=== PATIENT | female | born 1940 | race Two or more races ===

== ENCOUNTER 2019-01-13 17:16 | Inpatient (IN) | payer MEDICARE, MEDICAID ==
[2019-01-13] MEDS ORDERED: Sodium Chloride 0.9% 1,000 ML IV ONE (17:23)
--- NOTE | 2019-01-13 17:29 | ED Physician Chart ---
ED Chief Complaint/HPI - Patient Information Date Seen:: 01/13/19 Time Seen:: 17:15 Chief Complaint:: Hematochezia History of Present Illness:: onset x 2 days of hematochezia and melena; no report of trauma, H/As, S/T, neck pain, C/P, SOB, cough, Abd. Pain, A/N/V/D/C, fever, chills, or urinary s/s Historian:: Patient, EMS Review:: Nurse's Note Reviewed, Old Chart Reviewed, EMS run form Reviewed ED Review of Systems - Review of Systems General/Constitutional: No fever, No chills, No weight loss, No weakness, No diaphoresis, No edema, No loss of appetite Skin: No skin lesions, No rash, No bruising Head: No headache, No light-headedness Eyes: No loss of vision, No pain, No diplopia ENT: No earache, No nasal drainage, No sore throat, No tinnitus Neck: No neck pain, No swelling, No thyromegaly, No stiffness, No mass noted Cardio Vascular: No chest pain, No palpitations, No PND, No orthopnea, No edema Pulmonary: No SOB, No cough, No sputum, No wheezing GI: Nausea, Vomiting, Diarrhea, No pain, Melena, Hematochezia, No constipation, No hematemesis G/U: No dysuria, No frequency, No hematuria, No nacturia [employer] Installer: No vaginal discharge, No abnormal vaginal bleed, No contraction Musculoskeletal: No bone or joint pain, No back pain, No muscle pain Endocrine: No polyuria, No polydipsia Psychiatric: No prior psych history, No depression, No anxiety, No suicidal ideation, No homicidal ideation, No auditory hallucination, No visual hallucination Hematopoietic: No bruising, No lymphadenopathy Allergic/Immuno: No urticaria, No angioedema Neurological: No syncope, No focal symptoms, No weakness, No paresthesia, No headache, No seizure, No dizziness, No confusion, No vertigo ED Past Medical History - Past Medical History Obtainable: Yes Past Medical History: HTN, Dyslipidemia, PUD/GERD Family History: HTN Social History: Non Smoker, No Alcohol, No Drug Use, , Care Facility Surgical History: None Psychiatricy History: None Medication: Reviewed Family Medical History - Family Member Mother History Unknown: Yes ED Physical Exam - Physical Examination General/Constitutional: Awake, Well-developed, well-nourished, Alert, No distress, GCS 15, Non-toxic appearing, Ambulatory Head: Atraumatic Eyes: Lids, conjuctiva normal, PERRL, EOMI Skin: Nl inspection, No rash, No skin lesions, No ecchymosis, Well hydrated, No lymphadenopathy ENMT: External ears, nose nl, TM canals nl, Nasal exam nl, Lips, teeth, gums nl , Oropharynx nl, Tonsils nl Neck: Nontender, Full ROM w/o pain, No JVD, No nuchal rigidity, No bruit, No mass, No stridor Respiratory: Nl effort/Exclusion, Clear to Auscultation, No Wheeze/Rhonchi/Rales Cardio Vascular: RRR, No murmur, gallop, rubs, NL S1 S2, Carotid/Femoral/Distal pulses equal bilaterally GI: No tenderness/rebounding/guarding, No organomegaly, No hernia, Normal BS's, Nondistended, No mass/bruits, No McBurney tenderness : No CVA tenderness Extremities: No tenderness or effusion, Full ROM, normal strength in all extremities, No edema, Normal digits & nails Neuro/Psych: Alert/oriented, DTR's symmetric, Normal sensory exam, Normal motor strength, Judgement/insight normal, Mood normal, Normal gait, No focal deficits Misc: Normal back, No paraspinal tenderness ED Septic Shock - . Is Septic Shock (SBP<90, OR Lactate>4 mmol\L) present?: No ED Reassessment (Disposition) - Reassessment Reassessment Condition:: Improved - Diagnosis Diagnosis:: Hematochezia; Melena; GI Bleed; Hematuria; UTI; Hypoalbuminemia; Hypocalcemia; Anemia; Hyponatremia; Dehydration; Pancreatitis; Hyperglycemia - Aftercare/Follow up Instructions Aftercare/Follow-Up Instructions:: Counseled pt regarding lab results/diagnosis & need follow up, Counseled pt & family regarding lab results/diagnosis & need follow up - Patient Disposition Discharge/Transfer:: Acute Care w/in this hosp Accepting Physician:: Dr. Valentin Time Called:: 1829 Time Responded:: 18:30 Admitted to:: Telemetry Spoke to:: Dr. Valentin Admitting Medical Physician:: Dr. Valentin Condition at Disposition:: Stable, Improved
[2019-01-13 17:50] LABS: URINE SOURCE CLEAN C
[2019-01-13 17:55] LABS: URINE BILIRUBIN NEGATIVE (NEGATIVE); URINE BLOOD LARGE (NEGATIVE); URINE GLUCOSE (UA) NEGATIVE (NEGATIVE); URINE KETONE NEGATIVE (NEGATIVE); URINE LEUKOCYTE ESTERASE MODERATE (NEGATIVE); URINE MICROSCOPIC INDICATED? YES; URINE NITRATE NEGATIVE (NEGATIVE); URINE PROTEIN 30 mg/dL (NEGATIVE); URINE UROBILINOGEN 0.2 E.U./dL (0.2 - 1.0)
[2019-01-13 17:57] LABS: URINE CLARITY HAZY (CLEAR); URINE COLOR YELLOW
[2019-01-13 17:57] LABS: HEMOGLOBIN 8.6 gm/dL (12-16); LYMPHOCYTE ABSOLUTE 0.7 Th/cmm (1.5-3.0); NEUTROPHILE ABSOLUTE 5.6 Th/cmm (1.8-8.0)
[2019-01-13 17:59] LABS: % BASOPHILS 0.3 % (0.0-2.0); % EOSINOPHILS 0.5 % (0.0-5.0); % LYMPHOCYTES 9.9 % (20.0-50.0); % MONOCYTES 5.2 % (2.0-10.0); % NEUTROPHILS 84.1 % (40.0-80.0); HEMATOCRIT 25.8 % (41.0-60); MEAN CORPUSCULAR HEMOGLOBIN 30.1 pg (27.0-31.0); MEAN CORPUSCULAR HGB CONC 33.4 pg (28.0-36.0); MONOCYTE ABSOLUTE 0.3 Th/cmm (0.3-1.0); PLATELET COUNT 267 Th/cmm (150-400); RED BLOOD COUNT 2.86 Mil/cmm (3.80-5.20); RED CELL DISTRIBUTION WIDTH 17.3 % (11.5-20.0); WHITE BLOOD COUNT 6.6 Th/cmm (4.8-10.8)
[2019-01-13 18:05] LABS: URINE BACTERIA 3+ /hpf (NONE SEEN); URINE EPITHELIAL CELLS FEW /lpf (FEW)
[2019-01-13 18:06] LABS: ALB/GLOB RATIO 1.2 (1.0-1.8); ALBUMIN 2.9 gm/dL (3.7-5.3); ALKALINE PHOSPHATASE 115 U/L (34-104); AMYLASE SERUM 61 U/L (29-103); ANION GAP 11.6 (7.0-16.0); BILIRUBIN,TOTAL 0.4 mg/dL (0.3-1.0); BUN - UREA NITROGEN 35 mg/dL (7-25); CALCIUM SERUM 8.3 mg/dL (8.6-10.3); CARBON DIOXIDE 24.2 mEq/L (21.0-31.0); CHLORIDE 102 mEq/L (98-107); CREATININE - SERUM 0.9 mg/dL (0.6-1.2); GLUCOSE 144 mg/dL (70-105); LIPASE 116 U/L (11-82); POTASSIUM SERUM 3.8 mEq/L (3.5-5.1); SGOT 24 U/L (13-39); SGPT/ALT 33 U/L (7-52); SODIUM SERUM 134 mEq/L (136-145); TOTAL PROTEIN,SERUM 5.3 gm/dL (6.0-8.3)
[2019-01-13] MEDS ORDERED: cefTRIAXone 1 GM in Sodium Chloride 0.9% 50 ML IV ONE (18:31)
[2019-01-13 19:04] LABS: INR 0.98 (0.5-1.4)
[2019-01-13 20:10] VITALS: BP 99/55
[2019-01-13] MEDS: cefTRIAXone 1 GM in Sodium Chloride 0.9% 50 ML IV SCH (20:58)
[2019-01-14 05:41] LABS: HEMOGLOBIN 11.5 gm/dL (12-16); MONOCYTE ABSOLUTE 0.5 Th/cmm (0.3-1.0); NEUTROPHILE ABSOLUTE 5.3 Th/cmm (1.8-8.0); WHITE BLOOD COUNT 6.8 Th/cmm (4.8-10.8)
[2019-01-14 05:45] LABS: % BASOPHILS 0.6 % (0.0-2.0); % EOSINOPHILS 0.3 % (0.0-5.0); % LYMPHOCYTES 14.4 % (20.0-50.0); % MONOCYTES 7.9 % (2.0-10.0); % NEUTROPHILS 76.8 % (40.0-80.0); MEAN CELL VOLUME 88.2 fl (81-100); MEAN CORPUSCULAR HEMOGLOBIN 30.5 pg (27.0-31.0); MEAN CORPUSCULAR HGB CONC 34.6 pg (28.0-36.0); PLATELET COUNT 243 Th/cmm (150-400); RED BLOOD COUNT 3.76 Mil/cmm (3.80-5.20); RED CELL DISTRIBUTION WIDTH 15.7 % (11.5-20.0)
[2019-01-14 05:48] LABS: HEMATOCRIT 33.1 % (41.0-60)
--- NOTE | 2019-01-14 06:07 | Consultation ---
DATE OF CONSULTATION: 01/13/2019 INFECTIOUS DISEASE CONSULTATION REFERRING PHYSICIAN: Tim Valentin M.D. REASON FOR CONSULTATION: UTI. HISTORY OF PRESENT ILLNESS: The patient is a 78-year-old female with past medical history of dementia, hypertension, and dyslipidemia, brought to the ER for the hematochezia and melena for ____. Denies any trauma or any headache, dizziness, fever, or chills. On initial evaluation, the patient's urinalysis showed pyuria and bacteriuria. The patient was started on Rocephin. ID consult was called for further antibiotic management. PAST MEDICAL HISTORY: Dementia, hypertension, dyslipidemia, peptic ulcer disease, and GERD. PAST SURGICAL HISTORY: None. PSYCHIATRIC HISTORY: None. MEDICATIONS: As per medication reconciliation sheet. Antibiotic gleason, on Rocephin. ALLERGIES: NKDA. SOCIAL HISTORY: The patient lives at care facility. She is . The patient has no smoking, no alcohol, and no drug use. FAMILY HISTORY: Hypertension. REVIEW OF SYSTEMS: GENERAL: The patient has no fever, no chills, and no diaphoresis. HEENT: No diplopia, no photophobia, and no sore throat. RESPIRATORY: No cough. No shortness of breath. CARDIOVASCULAR: No chest pain or palpitation. GASTROINTESTINAL: The patient has no nausea, no vomiting, no diarrhea, but the patient has melena versus hematochezia. GENITOURINARY: No dysuria. No hematuria. NEUROLOGIC: No headache, no dizziness, and no focal weakness. PHYSICAL EXAMINATION: GENERAL: The patient is comfortable, obese, not in acute distress. VITAL SIGNS: Current vital signs shows temperature is 97 degrees Fahrenheit, pulse is 56, respirations 18, blood pressure is 99/55, and oxygen saturation is 97%. HEENT: Head is normocephalic, atraumatic. Oral cavity is moist, pink tongue. EYES: No pallor. No icterus. PERRLA, EOMI. NECK: Supple. No JVD. No carotid bruit. Trachea in midline. CHEST: Bilateral breath sounds. No crackles. No wheezing. HEART: S1, S2 within normal limits. Regular rhythm. No murmur. No gallop. ABDOMEN: Soft, nontender, nondistended. Bowel sounds present. EXTREMITIES: No cyanosis, no clubbing, and no edema. NEUROLOGIC: She is alert, awake, and oriented x 3. LABORATORY DATA: Current labs shows WBC count is 6600, hemoglobin is 8.6, hematocrit is 25.8, platelets are 267,000, and neutrophils 84%. INR is 0.98. Sodium is 134, potassium is 3.8, chloride is 102, bicarbonate is 24, BUN is 35, creatinine is 0.9, and glucose is 144. Urinalysis showed hazy urine with large blood, moderate leukoesterase, wbc's 10-25, and bacteria 3+. IMPRESSION: 1. Urinary tract infection. 2. ____ hematochezia. Rule out gastrointestinal bleed. 3. Hypertension. 4. Gastroesophageal reflux disease. 5. Peptic ulcer disease. 6. Dyslipidemia. RECOMMENDATIONS: We will continue Rocephin and depending on the culture report, we will define final antibiotic therapy. [facility]# [id number]
[2019-01-14 06:21] LABS: ANION GAP 11.7 (7.0-16.0); BUN - UREA NITROGEN 31 mg/dL (7-25); CALCIUM SERUM 8.4 mg/dL (8.6-10.3); CARBON DIOXIDE 24.8 mEq/L (21.0-31.0); CHLORIDE 105 mEq/L (98-107); CREATININE - SERUM 0.8 mg/dL (0.6-1.2); GLUCOSE 89 mg/dL (70-105); POTASSIUM SERUM 3.5 mEq/L (3.5-5.1); SODIUM SERUM 138 mEq/L (136-145)
[2019-01-14] MEDS: INSULIN LISPRO 100 UNIT/ML VIAL SUBQ SCH ×4 (06:43→21:41)
[2019-01-14] MEDS ORDERED: Diatrizoate Meglumine/Diatri 30 mL Sol PO ONE (08:42)
--- NOTE | 2019-01-14 09:53 | Consultation ---
DATE OF CONSULTATION: 01/14/2019 INPATIENT GASTROINTESTINAL CONSULTATION CONSULTING PHYSICIAN: Dr. Valentin. REASON FOR CONSULTATION: Hematochezia and possible melena and anemia. HISTORY OF PRESENT ILLNESS: The patient is a 78-year-old female with past medical history significant for dementia, GERD, hypertension, hyperlipidemia, who was brought into the hospital from a nursing facility for hematochezia and possible melena. The history is mostly obtained from the chart and the nursing staff as the patient is not a great historian. It was noted that her nursing facility, she was having bright red blood per rectum, although there is also report of black colored stool in the documentation. It is unclear if the patient has had any endoscopy prior. She herself denies it, but she has continued to have 2 episodes of hematochezia overnight while here at [facility]. Her hemoglobin on admission was 8.5 and she has since been given a blood transfusion. She denies any abdominal pain or hematemesis. PAST MEDICAL HISTORY: Dementia, hypertension, dyslipidemia, GERD. PAST SURGICAL HISTORY: She denies abdominal surgeries. FAMILY HISTORY: Noncontributory. SOCIAL HISTORY: The patient lives in a nursing facility. She does not smoke or use illicit drugs or drink alcohol. ALLERGIES: No known drug allergies. REVIEW OF SYSTEMS: A 12-point review of systems was performed with the patient's negative and the pertinent positives mentioned in the history of present illness. CURRENT MEDICATIONS: Include Tylenol, bisacodyl, ceftriaxone, insulin. PHYSICAL EXAMINATION: VITAL SIGNS: The blood pressure is 148/65, pulse 65 beats per minute, respiratory rate of 18, temperature 97.7, oxygenation 100%. GENERAL: The patient is lying on her back. She is alert and oriented x 2-3. She is not in any apparent distress. HEENT: Normocephalic, atraumatic appearing head. Pupils are equal and reactive. Extraocular muscles appear to be intact. Moist mucous membranes. NECK: Supple. There is JVD. There is no thyromegaly. CHEST: There are some crackles heard bilaterally at the bases. CARDIOVASCULAR: S1, S2 present. Regular rate and rhythm. ABDOMEN: Obese, soft, nontender to palpation. There is no guarding or rebound or fluid distention. EXTREMITIES: There is 1+ pitting edema bilaterally and venous stasis changes. Pulses are not present. SKIN: There is no jaundice. LABORATORY DATA: Sodium 138, BUN 31, creatinine 0.8, total bilirubin 0.4, AST 24, ALT 33, lipase 116. Hemoglobin 8.6 on admission, now it is 11.5; white blood cell count 6.6; platelet count 267. No abdominal imaging has been performed. IMPRESSION: This is a 78-year-old female with history of dementia, gastroesophageal reflux disease, hypertension, hyperlipidemia who is admitted to the hospital with hematochezia and possible melena. 1. Gastrointestinal bleed as manifested by hematochezia and also possible melena. 2. Hypertension. 3. Gastroesophageal reflux disease. 4. Profound immobility and confined to the bed. 5. Anemia. DISCUSSION: This patient appears to be having GI bleed. She is having hematochezia and there is also a report of some black stool at her nursing facility; thus, etiologies include both upper and lower gastrointestinal bleeding at this point, the patient denies ever having endoscopy before and thus EGD and colonoscopy is indicated now for further investigation and possible therapy. We will also get a CT scan with only oral contrast to ensure we are not looking at something like ischemic colitis or infectious colitis. RECOMMENDATIONS: 1. We will plan for EGD and colonoscopy tomorrow morning in the GI lab. 2. We will give bowel preparation tonight with 4 liters GoLYTELY. 3. Continue to trend hemoglobin, transfuse to keep hemoglobin above 7. 4. We will get an oral contrast CT scan as mentioned above. 5. Clear liquids are okay for today, n.p.o. at midnight. Thank you for allowing me to participate in her care. Please call me with any questions. JOB# [id number]
--- NOTE | 2019-01-14 10:36 | Consultation ---
Consult Note - Consult Note Service Date: 01/14/19 Referring Physician: Lani Valentin Consult Note: PHYSICIAN Consultation Note: Date of Admission: 01/13/19 Purpose of Consultation: Chief Complaint: History of Present Illness: Patient IDANIA QUINTERO was admitted to [facility] Telemetry with GI BLEED. Past Medical History: Allergies Allergy/AdvReac Type Severity Reaction Status Date / Time No Known Allergies Allergy Verified 01/13/19 17:30 Vital Signs Temp 97.7 F 01/14/19 07:54 Pulse 65 01/14/19 07:54 Resp 18 01/14/19 07:54 BP 148/65 01/14/19 07:54 Pulse Ox 100 01/14/19 07:54 Intake & Output 01/13/19 01/14/19 01/14/19 18:59 06:59 18:59 Intake Total 550 Output Total 600 Balance -50 Weight (lbs) 216 lb 203 lb Intake: Intake, IV Amount 50 cefTRIAXone 1 gm In 50 Sodium Chloride 0.9% 50 ml @ 100 mls/hr IV Q24HR ELENITA Rx#:[id number] Blood Product 500 Output: Urine 600 Other: # Bowel Movements 0 Weight Source Estimated Bedscale Laboratory Results - last 24 hr 01/13/19 01/13/19 01/13/19 17:40 17:40 17:40 WBC 6.6 RBC 2.86 L Hgb 8.6 L Hct 25.8 L MCV 90.0 MCH 30.1 MCHC Differential 33.4 RDW 17.3 Plt Count 267 MPV 7.4 Neutrophils % 84.1 H Lymphocytes % 9.9 L Monocytes % 5.2 Eosinophils % 0.5 Basophils % 0.3 PT INR Sodium 134 L Potassium 3.8 Chloride 102 Carbon Dioxide 24.2 Anion Gap 11.6 BUN 35 H Creatinine 0.9 Est GFR ( Amer) TNP Est GFR (Non-Af Amer) TNP BUN/Creatinine Ratio 38.9 Glucose 144 H POC Glucose Calcium 8.3 L Total Bilirubin 0.4 AST 24 ALT 33 Alkaline Phosphatase 115 H Troponin I 0.02 Total Protein 5.3 L Albumin 2.9 L Globulin 2.4 Albumin/Globulin Ratio 1.2 Amylase 61 Lipase 116 H Urine Source Urine Color Urine Clarity Urine pH Ur Specific [place] Urine Protein Urine Glucose (UA) Urine Ketones Urine Blood Urine Nitrate Urine Bilirubin Urine Urobilinogen Ur Leukocyte Esterase Urine RBC Urine WBC Ur Epithelial Cells Urine Bacteria Blood Type Antibody Screen Crossmatch 01/13/19 01/13/19 01/13/19 17:40 17:40 17:49 WBC RBC Hgb Hct MCV MCH MCHC Differential RDW Plt Count MPV Neutrophils % Lymphocytes % Monocytes % Eosinophils % Basophils % PT 10.2 INR 0.98 Sodium Potassium Chloride Carbon Dioxide Anion Gap BUN Creatinine Est GFR ( Amer) Est GFR (Non-Af Amer) BUN/Creatinine Ratio Glucose POC Glucose Calcium Total Bilirubin AST ALT Alkaline Phosphatase Troponin I Total Protein Albumin Globulin Albumin/Globulin Ratio Amylase Lipase Urine Source CLEAN C Urine Color YELLOW Urine Clarity HAZY Urine pH 6.0 Ur Specific [place] 1.025 Urine Protein 30 H Urine Glucose (UA) NEGATIVE Urine Ketones NEGATIVE Urine Blood LARGE H Urine Nitrate NEGATIVE Urine Bilirubin NEGATIVE Urine Urobilinogen 0.2 Ur Leukocyte Esterase MODERATE H Urine RBC 5-10 H Urine WBC 10-25 H Ur Epithelial Cells FEW Urine Bacteria 3+ H Blood Type O POSITIVE Antibody Screen NEGATIVE Crossmatch 01/13/19 01/14/19 01/14/19 17:50 05:30 05:30 WBC 6.8 RBC 3.76 L Hgb 11.5 L Hct 33.1 L D MCV 88.2 MCH 30.5 MCHC Differential 34.6 RDW 15.7 Plt Count 243 MPV 7.0 Neutrophils % 76.8 Lymphocytes % 14.4 L Monocytes % 7.9 Eosinophils % 0.3 Basophils % 0.6 PT INR Sodium 138 Potassium 3.5 Chloride 105 Carbon Dioxide 24.8 Anion Gap 11.7 BUN 31 H Creatinine 0.8 Est GFR ( Amer) TNP Est GFR (Non-Af Amer) TNP BUN/Creatinine Ratio 38.8 Glucose 89 POC Glucose Calcium 8.4 L Total Bilirubin AST ALT Alkaline Phosphatase Troponin I Total Protein Albumin Globulin Albumin/Globulin Ratio Amylase Lipase Urine Source Urine Color Urine Clarity Urine pH Ur Specific [place] Urine Protein Urine Glucose (UA) Urine Ketones Urine Blood Urine Nitrate Urine Bilirubin Urine Urobilinogen Ur Leukocyte Esterase Urine RBC Urine WBC Ur Epithelial Cells Urine Bacteria Blood Type O POSITIVE Antibody Screen NEGATIVE Crossmatch See Detail 01/14/19 05:41 WBC RBC Hgb Hct MCV MCH MCHC Differential RDW Plt Count MPV Neutrophils % Lymphocytes % Monocytes % Eosinophils % Basophils % PT INR Sodium Potassium Chloride Carbon Dioxide Anion Gap BUN Creatinine Est GFR ( Amer) Est GFR (Non-Af Amer) BUN/Creatinine Ratio Glucose POC Glucose 82 Calcium Total Bilirubin AST ALT Alkaline Phosphatase Troponin I Total Protein Albumin Globulin Albumin/Globulin Ratio Amylase Lipase Urine Source Urine Color Urine Clarity Urine pH Ur Specific [place] Urine Protein Urine Glucose (UA) Urine Ketones Urine Blood Urine Nitrate Urine Bilirubin Urine Urobilinogen Ur Leukocyte Esterase Urine RBC Urine WBC Ur Epithelial Cells Urine Bacteria Blood Type Antibody Screen Crossmatch Home Medication Medication Instructions Recorded Type Acetaminophen [Pain Reliever] 500 mg PO Q6H PRN 01/13/19 History Amlodipine Besylate 1 tab PO HS 01/13/19 History Ammonium Lactate Cream [Lac-Hydrin 1 appl TP BID 01/13/19 History Cream] Bisacodyl [Dulcolax 10 Mg Supp] 10 mg RC DAILY PRN 01/13/19 History Calcium Carbonate [Calcium Carb] 600 mg PO BID 01/13/19 History Chlorhexidine [Chlorhexidine 15 ml PO BID 01/13/19 History Flavor] Dexamethasone [Dexamethasone*] 2 mg PO Q12H 01/13/19 History Dextrose 50% [D50w] 25 gm IVP Q24H PRN 01/13/19 History Docusate Sodium [Colace] 100 mg PO BID 01/13/19 History Fleet Enema 135 ml RC DAILY PRN 01/13/19 History Gabapentin 200 mg PO DAILY 01/13/19 History Glucagon,Human Recombinant 1 mg IM Q15MIN PRN 01/13/19 History [Glucagon Emergency Kit] Heparin Sodium,Porcine [Heparin 5,000 unit IJ Q8H 01/13/19 History Sodium] Insulin Human Regular [humuLIN R] 0 units SUBQ ACHS 01/13/19 History Losartan Potassium [Cozaar] 100 mg PO DAILY 01/13/19 History Magnesium Hydroxide [Milk of 30 ml PO DAILY PRN 01/13/19 History Magnesia] Multivitamin with Minerals [Daily 1 each PO DAILY 01/13/19 History Vitamin Formula-Minerals] Pantoprazole Sodium 40 mg PO DAILY 01/13/19 History Polyethylene Glycol 3350 [Miralax] 17 gm PO DAILY PRN 01/13/19 History Ppd [Tubersol] 5 tu ID X1 01/13/19 History Pravastatin Sodium 10 mg PO HS 01/13/19 History Sennosides A and B [Senna] 8.6 mg PO BID 01/13/19 History Simethicone [Mylicon] 80 mg PO Q12H PRN 01/13/19 History Tramadol HCl [Ultram] 50 mg PO Q8H PRN 01/13/19 History Current Medications Generic Name Dose Route Start Last Admin Trade Name Freq PRN Reason Stop Dose Admin Acetaminophen 325 mg 01/13/19 22:21 Tylenol PO 03/14/19 22:20 Q4H PRN MILD PAIN AND TEMP ABOVE 101 Bisacodyl 10 mg 01/14/19 16:00 Dulcolax 5 Mg Ec Tab PO 01/14/19 16:01 X1 ONE Ceftriaxone Sodium 1 gm/ 50 mls @ 100 mls/hr 01/13/19 20:09 01/13/19 21:28 Sodium Chloride IV 03/14/19 20:08 Infused Q24HR ELENITA Infusion Insulin Human Lispro 0 unit 01/14/19 07:30 01/14/19 06:43 Humalog SUBQ 03/15/19 07:29 Not Given ACHS ELENITA Protocol Polyethylene Glycol/Electrolytes 4,000 ml 01/14/19 18:00 Golytely PO 01/14/19 18:01 X1 ONE Review of Systems: A 12 point ROS was reviewed with the pertinent positive and negatives noted in the HPI. Social History Smoking Status Smoker, status unknown Family Medical History Family Medical History Start: 01/13/19 19: 14 Freq: ONCE Status: Active Protocol: Document 01/13/19 20:00 ERICA (Rec: 01/13/19 22:23 ERICA [id number]) Family Medical History Mother History Unknown Yes Ethnicity Physical Exam: General: HEENT: Neck: Cardio: Respiratory: Abdominal: painless gi bleed Genital/Urinary: Extremities: Neurological: Assessment: gi bleed Plan: tomorrow will have an EGD and COLONOSCOPY will follow with you Signed, Kenny Lau [id number]
[2019-01-14] MEDS ORDERED: Magnesium Hydroxide (MOM) 30 mL UDC PO PRN (15:51)
[2019-01-14] MEDS ORDERED: Acetaminophen 500 MG TAB PO PRN (15:51)
[2019-01-14] MEDS ORDERED: POLYETHYLENE GLYCOL 3350 17 GM PACK PO PRN (15:51)
[2019-01-14] MEDS ORDERED: Dextrose 50% 50 mL Abboject IVP PRN (15:51)
[2019-01-14] MEDS ORDERED: Fleet Enema 135 mL RC PRN (15:51)
[2019-01-14] MEDS ORDERED: GLUCAGON HCl 1 MG KIT IM PRN (15:51)
[2019-01-14] MEDS ORDERED: Non-Formulary Item 1 EA (Heparin Sodium,Porcine [Heparin Sodium] 5,000 UNIT) IJ SCH (16:00)
[2019-01-14] MEDS: CHLORHEXIDINE PO SCH (16:09)
[2019-01-14] MEDS: cefTRIAXone 1 GM in Sodium Chloride 0.9% 50 ML IV SCH (21:39)
[2019-01-15] MEDS: Heparin Sod 5,000Units/ML 5,000 UNITS/ML VIAL SUBQ SCH ×3 (05:00→20:13)
[2019-01-15] MEDS: INSULIN LISPRO 100 UNIT/ML VIAL SUBQ SCH ×4 (07:16→20:13)
--- NOTE | 2019-01-15 07:50 | History & Physical ---
ADMIT DATE: 01/15/[address] Valentin. CHIEF COMPLAINT: Hematochezia. HISTORY OF PRESENT ILLNESS: A 78-year-old female who is a longterm resident who has a 2-day history of hematochezia and melena. No reports of any fevers at the longterm. For further management, the patient is admitted to the telemetry unit. PAST MEDICAL HISTORY: Hypertension, dyslipidemia, PUD, GERD, dementia. PAST SURGICAL HISTORY: None. MEDICATIONS: See medication list. ALLERGIES: No drug allergies. FAMILY HISTORY: Noncontributory. REVIEW OF SYSTEMS: Unable to obtain, the patient does not want to answer questions at this time. PHYSICAL EXAMINATION: GENERAL: Elderly female, awake, alert, in no apparent distress. VITAL SIGNS: Temperature 97.3, heart rate 81, blood pressure 136/69, respirations 18, O2 98%. HEENT: Head is normocephalic, atraumatic. NECK: Supple. No mass. LUNGS: Clear bilaterally. CARDIOVASCULAR: Regular rate and rhythm. ABDOMEN: Soft, nontender. LABORATORY DATA: WBC 6.8, H and H 11.5 and 33.1, platelet of 243. Sodium 138, potassium 3.5, chloride 105, BUN 31, creatinine 0.8. The patient had a urinalysis done, positive for UTI. ASSESSMENT: Hematochezia, melena, possible gastrointestinal bleed, acute urinary tract infection, microcytic anemia, vasomotor nephropathy, hypocalcemia, dementia, hypertension. PLAN: The patient to be admitted to the telemetry unit. We will get GI consultation as well as ID, give the patient IV fluids for hydration. We will continue to monitor this patient. JOB# [id number]
[2019-01-15] MEDS ORDERED: Tuberculin 5 TU/0.1 mL UD ID ONE (09:00)
[2019-01-15] MEDS ORDERED: Propofol 10 mg/mL 20mL Vial **SURGERY USE ONLY IV ONE (09:15)
[2019-01-15] MEDS ORDERED: Lidocaine 2% Gel 5 mL TP ONE (09:15)
[2019-01-15] MEDS: CHLORHEXIDINE PO SCH ×2 (10:45→16:30)
[2019-01-15] MEDS: Ammonium Lactate Cream 140 gm Tube TP SCH ×2 (10:46→17:32)
[2019-01-15] MEDS: Pantoprazole 40 mg EC Tab PO SCH (10:53)
[2019-01-15] MEDS: POLYETHYLENE GLYCOL 3350 17 GM PACK PO SCH (10:53)
[2019-01-15] MEDS: Multivitamin w/ Minerals Tab PO SCH (10:53)
--- NOTE | 2019-01-15 11:00 | Operative Report ---
DATE OF SURGERY: 01/15/2019 PROCEDURE: 1. Esophagogastroduodenoscopy with biopsy. 2. Colonoscopy with biopsy. PREPROCEDURE DIAGNOSES: 1. Gastrointestinal/rectal bleeding. 2. Anemia. POSTPROCEDURE DIAGNOSES: 1. Upper endoscopy showing mild gastritis, status post biopsy and CLOtest. 2. Colonoscopy showing fecal impaction/status post-digital disimpaction; medium-sized mid rectal ulcer, likely stercoral (due to fecal impaction), status post biopsy; probable cause of rectal bleeding; diverticulosis; small internal hemorrhoids; small sigmoid polyp, excised by biopsy forceps; limited examination of the colon. INDICATIONS: The patient is a 78-year-old female with mild dementia undergoing an upper endoscopy and colonoscopy for evaluation of GI bleeding and anemia. CONSENT: Informed consent was obtained from the patient and her durable power of employee benefits attorney prior to procedure after detailed explanation of risks, benefits, and alternatives including but not limited to infection, bleeding, perforation and . SEDATION: Monitored anesthesia care per Dr. Schreiber. DESCRIPTION OF PROCEDURE AND FINDINGS: The procedure took place as an inpatient in the GI suite of [facility]. The patient was kept in a left lateral decubitus position. Adequate sedation was achieved by Dr. Schreiber. Initially, an upper endoscopy was performed followed by colonoscopy. An Olympus diagnostic upper endoscope was advanced via the patient's mouth and into the esophagus. The esophagus appeared normal with the Z-line normal appearing at 36 cm from the gums. Retroflexion in the stomach revealed no GE junction mass or varices. No hiatal hernia was identified. Mild gastritis was identified in the antrum. Biopsy obtained for CLOtest as well as pathology. The pyloric channel and duodenum up to second portion appeared normal. The scope was then withdrawn from the patient. The patient was then repositioned and colonoscopy performed. Rectal examination revealed a large amount of stool in the rectum consistent with fecal impaction. Digital disimpaction was performed and a large amount of stool was evacuated. Next, a pediatric colonoscope was advanced via the patient's anus and into the rectum with ease. It was advanced up to the cecum, which was visualized by landmarks of ileocecal valve and appendiceal orifice. The quality of the bowel preparation was limited and somewhat poor in the rectosigmoid colon where lesions less than 1 cm may have been missed. Retroflexion was not able to be performed in the rectum due to the presence of fecal impaction. There was a single 6 mm sigmoid polyp that was excised by biopsy forceps. A 2 cm clean based rectal ulcer was identified in the mid rectum. This was likely stercoral and caused by fecal impaction. Biopsies were obtained from ulcer edges and submitted for histopathology to rule out dysplasia. End-on view of the anal canal revealed small internal hemorrhoids, and larger external hemorrhoids were also identified. There was [id number] left greater than right-sided diverticulosis without evidence of diverticulitis. The scope was then withdrawn. The patient tolerated the procedure well. No complications are anticipated. RECOMMENDATIONS: 1. GERD, gastritis and high fiber diet. 2. Stool softeners to relieve fecal impaction. This will also aid in healing of the ulcer. 3. Repeat colonoscopy advised perhaps in 6-12 months' time to assess the colon better. This can be done as an outpatient. 4. Oral diet as tolerated. 5. Monitor hemoglobin; transfuse as necessary. Thank you, Dr. Tim Valentin, for involving us in the care of your patient. If you have any further questions, please call us. JOB# [id number] MTDGerman
--- NOTE | 2019-01-15 13:16 | Diagnostic Imaging Report ---
CT scan abdomen and pelvis without intravenous contrast HISTORY: Gastrointestinal bleeding Total DLP equals 824 CTDI equals 14.2 Axial sections were obtained from the xiphoid process down to the pubic symphysis. The liver exhibits a normal size with a homogeneous parenchyma. No focal lesions. The spleen appears normal and no focal amenities seen within the pancreas. Gallstones are noted. The left kidney is not seen. Surgical clips seen in the left renal fossa consistent with a prior nephrectomy. Slight cortical irregularity involves the right kidney. Punctate nonobstructing calculus noted in the lateral cortex. No hydronephrosis. Defect noted within the subcutaneous tissues over the lower mid abdomen. The exam of the pelvis demonstrates a distended stool-filled rectum. Haziness of the perirectal and presacral fat. Significance should be correlated clinically. Rahman catheter is seen within a markedly contracted urinary bladder. Severe diffuse degenerative changes seen throughout the spine. IMPRESSION: 1. Findings of a prior left nephrectomy 2. Cholelithiasis 3. Scarring involving the cortex of the right kidney. Punctate calcification without hydronephrosis noted in the lateral cortex of the right kidney. 4. Distended stool-filled rectum. Haziness of the perirectal fat. Significance should be correlated clinically. 5. Severe degenerative changes within the spine along with surgical changes.
--- NOTE | 2019-01-15 13:23 | Diagnostic Imaging Report ---
Portable chest x-ray HISTORY: Cough, preoperative The heart is enlarged. Tortuosity of the thoracic aorta. No acute focal pulmonary processes. Surgical hardware noted throughout the thoracic spine. IMPRESSION: 1. No acute pulmonary processes 2. Cardiomegaly
--- NOTE | 2019-01-15 18:15 | Infectious Disease Prog Note ---
Infectious Disease Subjective - Review of Systems Service Date: 01/15/19 Subjective: cc uti/gi bleed hpi- pseudomonas in urine r to zosyn rocephin changed to levaquin endoscopy done ros no fever o/e vss chest clear clear s1s2 abd soft ext no edema Vital Signs - 24 hr 01/14/19 01/14/19 01/14/19 18:54 20:00 21:39 Temp 98 F HR 68 73 73 RR 18 18 BP 146/80 146/80 O2 Sat % 96 100 01/15/19 01/15/19 01/15/19 00:00 04:00 08:00 Temp 96.7 F 97.3 F 96.5 F HR 78 81 63 RR 18 18 18 BP 113/65 136/69 137/64 O2 Sat % 96 98 100 01/15/19 01/15/19 01/15/19 09:48 10:46 12:00 Temp 96.9 F HR 66 63 58 RR 18 16 BP 137/64 155/67 O2 Sat % 97 96 01/15/19 16:00 Temp HR 67 RR BP 155/64 O2 Sat % Procedures EXCISION OF SIGMOID COLON, ENDO, DIAGN (01/13/19) EXCISION OF STOMACH, PYLORUS, ENDO, DIAGN (01/13/19) Microbiology 01/13/19 17:49 Urine,Clean Catch Urine Culture - Final Pseudomonas Aeruginosa 01/13/19 17:50 Nares - Final NO MRSA ISOLATED Laboratory Results - last 24 hr 01/14/19 01/15/19 01/15/19 21:38 04:56 06:52 PT 10.4 INR 1.00 POC Glucose 102 95 Diagnoses HYPOCALCEMIA (01/13/19) UNSPECIFIED DEMENTIA WITHOUT BEHAVIORAL DISTURBANCE (01/13/19) ESSENTIAL (PRIMARY) HYPERTENSION (01/13/19) MELENA (01/13/19) ACUTE KIDNEY FAILURE WITH TUBULAR NECROSIS (01/13/19) URINARY TRACT INFECTION, SITE NOT SPECIFIED (01/13/19) WEAKNESS (01/13/19) Current Medications Acetaminophen (Tylenol) 325 mg PO Q4H PRN PRN Reason: MILD PAIN AND TEMP ABOVE 101 Stop: 03/14/19 22:20 Last Admin: 01/15/19 16:30 Dose: 325 mg Acetaminophen (Tylenol Extra Strength) 500 mg PO Q6H PRN PRN Reason: Pain (Mild) Stop: 03/15/19 15:50 Amlodipine Besylate (Norvasc) 5 mg PO HS [facility] Stop: 03/15/19 20:59 Last Admin: 01/14/19 21:39 Dose: 5 mg Bisacodyl (Dulcolax 10 Mg Supp) 10 mg RC DAILY PRN PRN Reason: Constipation Stop: 03/15/19 15:50 Calcium Carbonate (Calcium Carb) 600 mg PO BID [facility] Stop: 03/16/19 08:59 Last Admin: 01/15/19 16:30 Dose: 600 mg Dexamethasone (Decadron) 2 mg PO Q12HR [facility] Stop: 03/16/19 08:59 Last Admin: 01/15/19 10:45 Dose: Not Given Dextrose (D50w) 25 ml IVP Q24H PRN PRN Reason: blood sugar <70 Docusate Sodium (Colace) 100 mg PO BID [facility] Stop: 03/16/19 08:59 Last Admin: 01/15/19 16:30 Dose: Not Given Gabapentin (Neurontin) 200 mg PO DAILY [facility] Stop: 03/16/19 08:59 Last Admin: 01/15/19 10:45 Dose: Not Given Glucagon (Glucagen) 1 mg IM Q15MIN PRN PRN Reason: blood sugar<70 Heparin Sodium (Porcine) (Heparin) 5,000 units SUBQ Q8HR [facility] Stop: 03/16/19 04:59 Last Admin: 01/15/19 14:29 Dose: Not Given Levofloxacin (Levaquin Pb) 250 mg in 50 mls @ 50 mls/hr IV Q24HR [facility] Stop: 03/16/19 18:14 Insulin Human Lispro (Humalog) 0 unit SUBQ ACHS [facility]; Protocol Stop: 03/15/19 07:29 Last Admin: 01/15/19 17:32 Dose: Not Given Lactic Acid (Lac-Hydrin Cream) 1 appl TP BID [facility] Stop: 03/16/19 08:59 Last Admin: 01/15/19 17:32 Dose: 1 appl Losartan Potassium (Cozaar) 100 mg PO DAILY [facility] Stop: 03/16/19 08:59 Last Admin: 01/15/19 10:46 Dose: Not Given Magnesium Hydroxide (Milk Of Magnesia) 30 ml PO DAILY PRN PRN Reason: Constipation Stop: 03/15/19 15:50 Miscellaneous (Chlorhexidine [Chlorhexidine Flavor]) 15 ml PO BID [facility] Stop: 03/15/19 16:59 Last Admin: 01/15/19 16:30 Dose: Not Given Pantoprazole Sodium (Protonix) 40 mg PO DAILY [facility] Stop: 03/16/19 08:59 Last Admin: 01/15/19 10:53 Dose: Not Given Polyethylene Glycol (Miralax) 17 gm PO DAILY [facility] Stop: 03/16/19 10:44 Last Admin: 01/15/19 10:53 Dose: Not Given Senna (Senna) 8.6 mg PO BID [facility] Stop: 03/16/19 08:59 Last Admin: 01/15/19 16:30 Dose: Not Given Simethicone (Mylicon) 80 mg PO Q12H PRN PRN Reason: gas pain Stop: 03/15/19 15:50 Simvastatin (Zocor) 5 mg PO HS [facility] Stop: 03/16/19 20:59 Sodium Phosphate (Fleet Enema) 135 ml RC DAILY PRN PRN Reason: Constipation Stop: 03/15/19 15:50 Tramadol HCl (Ultram) 50 mg PO Q8H PRN PRN Reason: Pain (Severe) Stop: 03/15/19 15:50 Infectious Disease Objective - Results Result Diagrams: 01/14/19 05:30 01/14/19 05:30 Recent Labs: Laboratory Last Values WBC 6.8 Th/cmm (4.8-10.8) 01/14/19 05:30 RBC 3.76 Mil/cmm (3.80-5.20) L 01/14/19 05:30 Hgb 11.5 gm/dL (12-16) L 01/14/19 05:30 Hct 33.1 % (41.0-60) L D 01/14/19 05:30 MCV 88.2 fl (81-100) 01/14/19 05:30 MCH 30.5 pg (27.0-31.0) 01/14/19 05:30 MCHC Differential 34.6 pg (28.0-36.0) 01/14/19 05:30 RDW 15.7 % (11.5-20.0) 01/14/19 05:30 Plt Count 243 Th/cmm (150-400) 01/14/19 05:30 MPV 7.0 fl 01/14/19 05:30 Neutrophils % 76.8 % (40.0-80.0) 01/14/19 05:30 Lymphocytes % 14.4 % (20.0-50.0) L 01/14/19 05:30 Monocytes % 7.9 % (2.0-10.0) 01/14/19 05:30 Eosinophils % 0.3 % (0.0-5.0) 01/14/19 05:30 Basophils % 0.6 % (0.0-2.0) 01/14/19 05:30 PT 10.4 SECONDS (9.5-11.5) 01/15/19 04:56 INR 1.00 (0.5-1.4) 01/15/19 04:56 Sodium 138 mEq/L (136-145) 01/14/19 05:30 Potassium 3.5 mEq/L (3.5-5.1) 01/14/19 05:30 Chloride 105 mEq/L (98-107) 01/14/19 05:30 Carbon Dioxide 24.8 mEq/L (21.0-31.0) 01/14/19 05:30 Anion Gap 11.7 (7.0-16.0) 01/14/19 05:30 BUN 31 mg/dL (7-25) H 01/14/19 05:30 Creatinine 0.8 mg/dL (0.6-1.2) 01/14/19 05:30 Est GFR ( Amer) TNP 01/14/19 05:30 Est GFR (Non-Af Amer) TNP 01/14/19 05:30 BUN/Creatinine Ratio 38.8 01/14/19 05:30 Glucose 89 mg/dL (70-105) 01/14/19 05:30 POC Glucose 95 MG/DL (70 - 105) 01/15/19 06:52 Calcium 8.4 mg/dL (8.6-10.3) L 01/14/19 05:30 Total Bilirubin 0.4 mg/dL (0.3-1.0) 01/13/19 17:40 AST 24 U/L (13-39) 01/13/19 17:40 ALT 33 U/L (7-52) 01/13/19 17:40 Alkaline Phosphatase 115 U/L (34-104) H 01/13/19 17:40 Troponin I 0.02 ng/mL (0.01-0.05) 01/13/19 17:40 Total Protein 5.3 gm/dL (6.0-8.3) L 01/13/19 17:40 Albumin 2.9 gm/dL (3.7-5.3) L 01/13/19 17:40 Globulin 2.4 gm/dL 01/13/19 17:40 Albumin/Globulin Ratio 1.2 (1.0-1.8) 01/13/19 17:40 Amylase 61 U/L (29-103) 01/13/19 17:40 Lipase 116 U/L (11-82) H 01/13/19 17:40 Urine Source CLEAN C 01/13/19 17:49 Urine Color YELLOW 01/13/19 17:49 Urine Clarity HAZY (CLEAR) 01/13/19 17:49 Urine pH 6.0 (4.6 - 8.0) 01/13/19 17:49 Ur Specific [place] 1.025 (1.005-1.030) 01/13/19 17:49 Urine Protein 30 mg/dL (NEGATIVE) H 01/13/19 17:49 Urine Glucose (UA) NEGATIVE mg/dL (NEGATIVE) 01/13/19 17:49 Urine Ketones NEGATIVE mg/dL (NEGATIVE) 01/13/19 17:49 Urine Blood LARGE (NEGATIVE) H 01/13/19 17:49 Urine Nitrate NEGATIVE (NEGATIVE) 01/13/19 17:49 Urine Bilirubin NEGATIVE (NEGATIVE) 01/13/19 17:49 Urine Urobilinogen 0.2 E.U./dL (0.2 - 1.0) 01/13/19 17:49 Ur Leukocyte Esterase MODERATE (NEGATIVE) H 01/13/19 17:49 Urine RBC 5-10 /hpf (0-5) H 01/13/19 17:49 Urine WBC 10-25 /hpf (0-5) H 01/13/19 17:49 Ur Epithelial Cells FEW /lpf (FEW) 01/13/19 17:49 Urine Bacteria 3+ /hpf (NONE SEEN) H 01/13/19 17:49 Blood Type O POSITIVE 01/13/19 17:50 Antibody Screen NEGATIVE 01/13/19 17:50 Crossmatch See Detail 01/13/19 17:50 - Physical Exam Vitals and I&O: Vital Signs Temp 96.9 F 01/15/19 12:00 Pulse 67 01/15/19 16:00 Resp 16 01/15/19 12:00 BP 155/64 01/15/19 16:00 Pulse Ox 96 01/15/19 12:00 Intake & Output 01/14/19 01/15/19 01/15/19 18:59 06:59 18:59 Intake Total 550 300 Output Total 1100 800 Balance -550 -500 Weight (lbs) 92.079 kg 92.079 kg Intake: Oral 550 300 Output: Urine 1100 800 Other: # Bowel Movements 2 0 Weight Source Bedscale Bedscale Active Medications: Current Medications Acetaminophen (Tylenol) 325 mg PO Q4H PRN PRN Reason: MILD PAIN AND TEMP ABOVE 101 Stop: 03/14/19 22:20 Last Admin: 01/15/19 16:30 Dose: 325 mg Acetaminophen (Tylenol Extra Strength) 500 mg PO Q6H PRN PRN Reason: Pain (Mild) Stop: 03/15/19 15:50 Amlodipine Besylate (Norvasc) 5 mg PO HS [facility] Stop: 03/15/19 20:59 Last Admin: 01/14/19 21:39 Dose: 5 mg Bisacodyl (Dulcolax 10 Mg Supp) 10 mg RC DAILY PRN PRN Reason: Constipation Stop: 03/15/19 15:50 Calcium Carbonate (Calcium Carb) 600 mg PO BID [facility] Stop: 03/16/19 08:59 Last Admin: 01/15/19 16:30 Dose: 600 mg Dexamethasone (Decadron) 2 mg PO Q12HR [facility] Stop: 03/16/19 08:59 Last Admin: 01/15/19 10:45 Dose: Not Given Dextrose (D50w) 25 ml IVP Q24H PRN PRN Reason: blood sugar <70 Docusate Sodium (Colace) 100 mg PO BID [facility] Stop: 03/16/19 08:59 Last Admin: 01/15/19 16:30 Dose: Not Given Gabapentin (Neurontin) 200 mg PO DAILY [facility] Stop: 03/16/19 08:59 Last Admin: 01/15/19 10:45 Dose: Not Given Glucagon (Glucagen) 1 mg IM Q15MIN PRN PRN Reason: blood sugar<70 Heparin Sodium (Porcine) (Heparin) 5,000 units SUBQ Q8HR [facility] Stop: 03/16/19 04:59 Last Admin: 01/15/19 14:29 Dose: Not Given Levofloxacin (Levaquin Pb) 250 mg in 50 mls @ 50 mls/hr IV Q24HR [facility] Stop: 03/16/19 18:14 Insulin Human Lispro (Humalog) 0 unit SUBQ [facility]; Protocol Stop: 03/15/19 07:29 Last Admin: 01/15/19 17:32 Dose: Not Given Lactic Acid (Lac-Hydrin Cream) 1 appl TP BID [facility] Stop: 03/16/19 08:59 Last Admin: 01/15/19 17:32 Dose: 1 appl Losartan Potassium (Cozaar) 100 mg PO DAILY [facility] Stop: 03/16/19 08:59 Last Admin: 01/15/19 10:46 Dose: Not Given Magnesium Hydroxide (Milk Of Magnesia) 30 ml PO DAILY PRN PRN Reason: Constipation Stop: 03/15/19 15:50 Miscellaneous (Chlorhexidine [Chlorhexidine Flavor]) 15 ml PO BID [facility] Stop: 03/15/19 16:59 Last Admin: 01/15/19 16:30 Dose: Not Given Pantoprazole Sodium (Protonix) 40 mg PO DAILY [facility] Stop: 03/16/19 08:59 Last Admin: 01/15/19 10:53 Dose: Not Given Polyethylene Glycol (Miralax) 17 gm PO DAILY [facility] Stop: 03/16/19 10:44 Last Admin: 01/15/19 10:53 Dose: Not Given Senna (Senna) 8.6 mg PO BID [facility] Stop: 03/16/19 08:59 Last Admin: 01/15/19 16:30 Dose: Not Given Simethicone (Mylicon) 80 mg PO Q12H PRN PRN Reason: gas pain Stop: 03/15/19 15:50 Simvastatin (Zocor) 5 mg PO HS [facility] Stop: 03/16/19 20:59 Sodium Phosphate (Fleet Enema) 135 ml RC DAILY PRN PRN Reason: Constipation Stop: 03/15/19 15:50 Tramadol HCl (Ultram) 50 mg PO Q8H PRN PRN Reason: Pain (Severe) Stop: 03/15/19 15:50 - Procedures Procedures: Procedures Procedure Code Date EXCISION OF SIGMOID COLON, ENDO, DIAGN [id number] 01/13/19 EXCISION OF STOMACH, PYLORUS, ENDO, DIAGN [id number] 01/13/19
[2019-01-15] MEDS: Levofloxacin 250mg/50mL 250 MG/50 ML BAG IV SCH (20:13)
[2019-01-16] MEDS: Heparin Sod 5,000Units/ML 5,000 UNITS/ML VIAL SUBQ SCH ×3 (05:15→20:55)
[2019-01-16 06:17] LABS: % BASOPHILS 0.1 % (0.0-2.0); % EOSINOPHILS 0.2 % (0.0-5.0); % LYMPHOCYTES 10.6 % (20.0-50.0); % MONOCYTES 3.9 % (2.0-10.0); % NEUTROPHILS 85.2 % (40.0-80.0); HEMATOCRIT 32.7 % (41.0-60); LYMPHOCYTE ABSOLUTE 0.8 Th/cmm (1.5-3.0); MEAN CELL VOLUME 89.7 fl (81-100); MEAN CORPUSCULAR HEMOGLOBIN 30.1 pg (27.0-31.0); MEAN CORPUSCULAR HGB CONC 33.6 pg (28.0-36.0); MONOCYTE ABSOLUTE 0.3 Th/cmm (0.3-1.0); NEUTROPHILE ABSOLUTE 6.3 Th/cmm (1.8-8.0); PLATELET COUNT 179 Th/cmm (150-400); RED BLOOD COUNT 3.65 Mil/cmm (3.80-5.20); RED CELL DISTRIBUTION WIDTH 16.6 % (11.5-20.0); WHITE BLOOD COUNT 7.4 Th/cmm (4.8-10.8)
[2019-01-16] MEDS: INSULIN LISPRO 100 UNIT/ML VIAL SUBQ SCH ×4 (06:42→20:54)
[2019-01-16 07:10] LABS: ANION GAP 12.5 (7.0-16.0); BUN - UREA NITROGEN 19 mg/dL (7-25); CALCIUM SERUM 8.3 mg/dL (8.6-10.3); CARBON DIOXIDE 22.3 mEq/L (21.0-31.0); CHLORIDE 103 mEq/L (98-107); CREATININE - SERUM 0.6 mg/dL (0.6-1.2); GLUCOSE 104 mg/dL (70-105); SODIUM SERUM 135 mEq/L (136-145)
[2019-01-16 07:14] LABS: POTASSIUM SERUM 2.8 mEq/L (3.5-5.1)
[2019-01-16] MEDS: KCL 20mEq/100mL Premix 20 MEQ/100 ML PIGGYBACK IV SCH ×2 (08:12→10:50)
[2019-01-16] MEDS: Sodium Chloride 0.45% 1,000 ML IV SCH (08:16)
[2019-01-16] MEDS: POLYETHYLENE GLYCOL 3350 17 GM PACK PO SCH (08:27)
[2019-01-16] MEDS: Multivitamin w/ Minerals Tab PO SCH (08:28)
[2019-01-16] MEDS: CHLORHEXIDINE PO SCH ×2 (08:32→17:03)
[2019-01-16] MEDS: Ammonium Lactate Cream 140 gm Tube TP SCH ×2 (08:32→17:06)
[2019-01-16] MEDS: Pantoprazole 40 mg EC Tab PO SCH (08:32)
--- NOTE | 2019-01-16 08:47 | GI Progress Note ---
Subjective - Review of Systems Service Date: 01/16/19 Subjective: Feels better. No abd pain or bleeding. Igor diet. GI OBJECTIVE - Results Result Diagrams: 01/16/19 05:30 01/16/19 05:30 Recent Labs: Laboratory Last Values WBC 7.4 Th/cmm (4.8-10.8) 01/16/19 05:30 RBC 3.65 Mil/cmm (3.80-5.20) L 01/16/19 05:30 Hgb 11.0 gm/dL (12-16) L 01/16/19 05:30 Hct 32.7 % (41.0-60) L 01/16/19 05:30 MCV 89.7 fl (81-100) 01/16/19 05:30 MCH 30.1 pg (27.0-31.0) 01/16/19 05:30 MCHC Differential 33.6 pg (28.0-36.0) 01/16/19 05:30 RDW 16.6 % (11.5-20.0) 01/16/19 05:30 Plt Count 179 Th/cmm (150-400) 01/16/19 05:30 MPV 7.7 fl 01/16/19 05:30 Neutrophils % 85.2 % (40.0-80.0) H 01/16/19 05:30 Lymphocytes % 10.6 % (20.0-50.0) L 01/16/19 05:30 Monocytes % 3.9 % (2.0-10.0) 01/16/19 05:30 Eosinophils % 0.2 % (0.0-5.0) 01/16/19 05:30 Basophils % 0.1 % (0.0-2.0) 01/16/19 05:30 PT 10.4 SECONDS (9.5-11.5) 01/15/19 04:56 INR 1.00 (0.5-1.4) 01/15/19 04:56 Sodium 135 mEq/L (136-145) L 01/16/19 05:30 Potassium 2.8 mEq/L (3.5-5.1) L* 01/16/19 05:30 Chloride 103 mEq/L (98-107) 01/16/19 05:30 Carbon Dioxide 22.3 mEq/L (21.0-31.0) 01/16/19 05:30 Anion Gap 12.5 (7.0-16.0) 01/16/19 05:30 BUN 19 mg/dL (7-25) 01/16/19 05:30 Creatinine 0.6 mg/dL (0.6-1.2) 01/16/19 05:30 Est GFR ( Amer) TNP 01/16/19 05:30 Est GFR (Non-Af Amer) TNP 01/16/19 05:30 BUN/Creatinine Ratio 31.7 01/16/19 05:30 Glucose 104 mg/dL (70-105) 01/16/19 05:30 POC Glucose 96 MG/DL (70 - 105) 01/16/19 05:26 Calcium 8.3 mg/dL (8.6-10.3) L 01/16/19 05:30 Total Bilirubin 0.4 mg/dL (0.3-1.0) 01/13/19 17:40 AST 24 U/L (13-39) 01/13/19 17:40 ALT 33 U/L (7-52) 01/13/19 17:40 Alkaline Phosphatase 115 U/L (34-104) H 01/13/19 17:40 Troponin I 0.02 ng/mL (0.01-0.05) 01/13/19 17:40 Total Protein 5.3 gm/dL (6.0-8.3) L 01/13/19 17:40 Albumin 2.9 gm/dL (3.7-5.3) L 01/13/19 17:40 Globulin 2.4 gm/dL 01/13/19 17:40 Albumin/Globulin Ratio 1.2 (1.0-1.8) 01/13/19 17:40 Amylase 61 U/L (29-103) 01/13/19 17:40 Lipase 116 U/L (11-82) H 01/13/19 17:40 Urine Source CLEAN C 01/13/19 17:49 Urine Color YELLOW 01/13/19 17:49 Urine Clarity HAZY (CLEAR) 01/13/19 17:49 Urine pH 6.0 (4.6 - 8.0) 01/13/19 17:49 Ur Specific [place] 1.025 (1.005-1.030) 01/13/19 17:49 Urine Protein 30 mg/dL (NEGATIVE) H 01/13/19 17:49 Urine Glucose (UA) NEGATIVE mg/dL (NEGATIVE) 01/13/19 17:49 Urine Ketones NEGATIVE mg/dL (NEGATIVE) 01/13/19 17:49 Urine Blood LARGE (NEGATIVE) H 01/13/19 17:49 Urine Nitrate NEGATIVE (NEGATIVE) 01/13/19 17:49 Urine Bilirubin NEGATIVE (NEGATIVE) 01/13/19 17:49 Urine Urobilinogen 0.2 E.U./dL (0.2 - 1.0) 01/13/19 17:49 Ur Leukocyte Esterase MODERATE (NEGATIVE) H 01/13/19 17:49 Urine RBC 5-10 /hpf (0-5) H 01/13/19 17:49 Urine WBC 10-25 /hpf (0-5) H 01/13/19 17:49 Ur Epithelial Cells FEW /lpf (FEW) 01/13/19 17:49 Urine Bacteria 3+ /hpf (NONE SEEN) H 01/13/19 17:49 Blood Type O POSITIVE 01/13/19 17:50 Antibody Screen NEGATIVE 01/13/19 17:50 Crossmatch See Detail 01/13/19 17:50 - Physical Exam Vitals and I&O: Vital Signs Temp 97 F 01/16/19 04:00 Pulse 58 01/16/19 08:31 Resp 18 01/16/19 07:15 BP 144/71 01/16/19 08:31 Pulse Ox 96 01/16/19 07:15 Intake & Output 01/15/19 01/16/19 01/16/19 18:59 06:59 18:59 Intake Total 300 170 Output Total 1100 750 Balance -800 -580 Weight (lbs) 92.079 kg 92.079 kg Intake: Intake, IV Amount 50 Levofloxacin 250mg/50mL 50 250 mg In 50 ml @ 50 mls/ hr IV Q24HR [facility] Rx#: [id number] Oral 300 120 Output: Urine 1100 750 Other: # Bowel Movements 0 1 Weight Source Bedscale Bedscale Active Medications: Current Medications Acetaminophen (Tylenol) 325 mg PO Q4H PRN PRN Reason: MILD PAIN AND TEMP ABOVE 101 Stop: 03/14/19 22:20 Last Admin: 01/15/19 16:30 Dose: 325 mg Acetaminophen (Tylenol Extra Strength) 500 mg PO Q6H PRN PRN Reason: Pain (Mild) Stop: 03/15/19 15:50 Amlodipine Besylate (Norvasc) 5 mg PO HS [facility] Stop: 03/15/19 20:59 Last Admin: 01/15/19 20:12 Dose: 5 mg Bisacodyl (Dulcolax 10 Mg Supp) 10 mg RC DAILY PRN PRN Reason: Constipation Stop: 03/15/19 15:50 Calcium Carbonate (Calcium Carb) 600 mg PO BID [facility] Stop: 03/16/19 08:59 Last Admin: 01/16/19 08:32 Dose: 600 mg Dexamethasone (Decadron) 2 mg PO Q12HR [facility] Stop: 03/16/19 08:59 Last Admin: 01/16/19 08:31 Dose: 2 mg Dextrose (D50w) 25 ml IVP Q24H PRN PRN Reason: blood sugar <70 Docusate Sodium (Colace) 100 mg PO BID [facility] Stop: 03/16/19 08:59 Last Admin: 01/16/19 08:31 Dose: 100 mg Gabapentin (Neurontin) 200 mg PO DAILY [facility] Stop: 03/16/19 08:59 Last Admin: 01/16/19 08:32 Dose: 200 mg Glucagon (Glucagen) 1 mg IM Q15MIN PRN PRN Reason: blood sugar<70 Heparin Sodium (Porcine) (Heparin) 5,000 units SUBQ Q8HR [facility] Stop: 03/16/19 04:59 Last Admin: 01/16/19 05:15 Dose: Not Given Levofloxacin (Levaquin Pb) 250 mg in 50 mls @ 50 mls/hr IV Q24HR [facility] Stop: 03/16/19 19:59 Last Infusion: 01/15/19 21:13 Dose: Infused Potassium Chloride (Potassium Chloride) 20 meq in 100 mls @ 50 mls/hr IV Q2H [facility] Stop: 01/16/19 11:29 Last Admin: 01/16/19 08:12 Dose: 50 mls/hr Sodium Chloride (Nacl 0.45%) 1,000 mls @ 50 mls/hr IV .Q20H [facility] Stop: 03/17/19 07:29 Last Admin: 01/16/19 08:16 Dose: 50 mls/hr Insulin Human Lispro (Humalog) 0 unit SUBQ ACHS [facility]; Protocol Stop: 03/15/19 07:29 Last Admin: 01/16/19 06:42 Dose: Not Given Lactic Acid (Lac-Hydrin Cream) 1 appl TP BID [facility] Stop: 03/16/19 08:59 Last Admin: 01/16/19 08:32 Dose: 1 appl Losartan Potassium (Cozaar) 100 mg PO DAILY [facility] Stop: 03/16/19 08:59 Last Admin: 01/16/19 08:31 Dose: 100 mg Magnesium Hydroxide (Milk Of Magnesia) 30 ml PO DAILY PRN PRN Reason: Constipation Stop: 03/15/19 15:50 Miscellaneous (Chlorhexidine [Chlorhexidine Flavor]) 15 ml PO BID [facility] Stop: 03/15/19 16:59 Last Admin: 01/16/19 08:32 Dose: Not Given Pantoprazole Sodium (Protonix) 40 mg PO DAILY [facility] Stop: 03/16/19 08:59 Last Admin: 01/16/19 08:32 Dose: 40 mg Polyethylene Glycol (Miralax) 17 gm PO DAILY [facility] Stop: 03/16/19 10:44 Last Admin: 01/16/19 08:27 Dose: 17 gm Senna (Senna) 8.6 mg PO BID [facility] Stop: 03/16/19 08:59 Last Admin: 01/16/19 08:28 Dose: 8.6 mg Simethicone (Mylicon) 80 mg PO Q12H PRN PRN Reason: gas pain Stop: 03/15/19 15:50 Simvastatin (Zocor) 5 mg PO HS [facility] Stop: 03/16/19 20:59 Last Admin: 01/15/19 20:12 Dose: 5 mg Sodium Phosphate (Fleet Enema) 135 ml RC DAILY PRN PRN Reason: Constipation Stop: 03/15/19 15:50 Tramadol HCl (Ultram) 50 mg PO Q8H PRN PRN Reason: Pain (Severe) Stop: 03/15/19 15:50 Last Admin: 01/16/19 00:03 Dose: 50 mg General: Alert Cardiovascular: Regular rate Lungs: Clear to auscultation Abdomen: Bowel sounds, Soft, no Tender - Procedures Procedures: Procedures Procedure Code Date EXCISION OF SIGMOID COLON, ENDO, DIAGN [id number] 01/13/19 EXCISION OF STOMACH, PYLORUS, ENDO, DIAGN [id number] 01/13/19 Assessment/Plan - Assessment Assessment: IMPRESSION: 1. GI bleed, likely due to rectal ulcer from fecal impaction. 2. Anemia. 3. EGD showed gastritis. 4. Colonoscopy showed fecal impaction with resultant rectal stercoral ulcer ( biopsied), sigmoid polyp removed; diverticulosis; hemorrhoids. RECS: 1. Laxatives/stool softeners. 2. F/U biopsy results. 3. Oral diet as tolerated.
--- NOTE | 2019-01-16 16:18 | Infectious Disease Prog Note ---
Infectious Disease Subjective - Review of Systems Service Date: 01/16/19 Subjective: cc pseudomonas uti/gi bleed hpi- pseudomonas in urine r to zosyn rocephin changed to levaquin endoscopy done ros no fever o/e vss chest clear clear s1s2 abd soft ext no edema Vital Signs - 24 hr 01/14/19 01/14/19 01/14/19 18:54 20:00 21:39 Temp 98 F HR 68 73 73 RR 18 18 BP 146/80 146/80 O2 Sat % 96 100 01/15/19 01/15/19 01/15/19 00:00 04:00 08:00 Temp 96.7 F 97.3 F 96.5 F HR 78 81 63 RR 18 18 18 BP 113/65 136/69 137/64 O2 Sat % 96 98 100 01/15/19 01/15/19 01/15/19 09:48 10:46 12:00 Temp 96.9 F HR 66 63 58 RR 18 16 BP 137/64 155/67 O2 Sat % 97 96 01/15/19 16:00 Temp HR 67 RR BP 155/64 O2 Sat % Procedures EXCISION OF SIGMOID COLON, ENDO, DIAGN (01/13/19) EXCISION OF STOMACH, PYLORUS, ENDO, DIAGN (01/13/19) Microbiology 01/13/19 17:49 Urine,Clean Catch Urine Culture - Final Pseudomonas Aeruginosa 01/13/19 17:50 Nares - Final NO MRSA ISOLATED Laboratory Results - last 24 hr 01/14/19 01/15/19 01/15/19 21:38 04:56 06:52 PT 10.4 INR 1.00 POC Glucose 102 95 Diagnoses HYPOCALCEMIA (01/13/19) UNSPECIFIED DEMENTIA WITHOUT BEHAVIORAL DISTURBANCE (01/13/19) ESSENTIAL (PRIMARY) HYPERTENSION (01/13/19) MELENA (01/13/19) ACUTE KIDNEY FAILURE WITH TUBULAR NECROSIS (01/13/19) URINARY TRACT INFECTION, SITE NOT SPECIFIED (01/13/19) WEAKNESS (01/13/19) Current Medications Acetaminophen (Tylenol) 325 mg PO Q4H PRN PRN Reason: MILD PAIN AND TEMP ABOVE 101 Stop: 03/14/19 22:20 Last Admin: 01/15/19 16:30 Dose: 325 mg Acetaminophen (Tylenol Extra Strength) 500 mg PO Q6H PRN PRN Reason: Pain (Mild) Stop: 03/15/19 15:50 Amlodipine Besylate (Norvasc) 5 mg PO HS [facility] Stop: 03/15/19 20:59 Last Admin: 01/14/19 21:39 Dose: 5 mg Bisacodyl (Dulcolax 10 Mg Supp) 10 mg RC DAILY PRN PRN Reason: Constipation Stop: 03/15/19 15:50 Calcium Carbonate (Calcium Carb) 600 mg PO BID [facility] Stop: 03/16/19 08:59 Last Admin: 01/15/19 16:30 Dose: 600 mg Dexamethasone (Decadron) 2 mg PO Q12HR [facility] Stop: 03/16/19 08:59 Last Admin: 01/15/19 10:45 Dose: Not Given Dextrose (D50w) 25 ml IVP Q24H PRN PRN Reason: blood sugar <70 Docusate Sodium (Colace) 100 mg PO BID [facility] Stop: 03/16/19 08:59 Last Admin: 01/15/19 16:30 Dose: Not Given Gabapentin (Neurontin) 200 mg PO DAILY [facility] Stop: 03/16/19 08:59 Last Admin: 01/15/19 10:45 Dose: Not Given Glucagon (Glucagen) 1 mg IM Q15MIN PRN PRN Reason: blood sugar<70 Heparin Sodium (Porcine) (Heparin) 5,000 units SUBQ Q8HR [facility] Stop: 03/16/19 04:59 Last Admin: 01/15/19 14:29 Dose: Not Given Levofloxacin (Levaquin Pb) 250 mg in 50 mls @ 50 mls/hr IV Q24HR [facility] Stop: 03/16/19 18:14 Insulin Human Lispro (Humalog) 0 unit SUBQ ACHS [facility]; Protocol Stop: 03/15/19 07:29 Last Admin: 01/15/19 17:32 Dose: Not Given Lactic Acid (Lac-Hydrin Cream) 1 appl TP BID [facility] Stop: 03/16/19 08:59 Last Admin: 01/15/19 17:32 Dose: 1 appl Losartan Potassium (Cozaar) 100 mg PO DAILY [facility] Stop: 03/16/19 08:59 Last Admin: 01/15/19 10:46 Dose: Not Given Magnesium Hydroxide (Milk Of Magnesia) 30 ml PO DAILY PRN PRN Reason: Constipation Stop: 03/15/19 15:50 Miscellaneous (Chlorhexidine [Chlorhexidine Flavor]) 15 ml PO BID [facility] Stop: 03/15/19 16:59 Last Admin: 01/15/19 16:30 Dose: Not Given Pantoprazole Sodium (Protonix) 40 mg PO DAILY [facility] Stop: 03/16/19 08:59 Last Admin: 01/15/19 10:53 Dose: Not Given Polyethylene Glycol (Miralax) 17 gm PO DAILY [facility] Stop: 03/16/19 10:44 Last Admin: 01/15/19 10:53 Dose: Not Given Senna (Senna) 8.6 mg PO BID [facility] Stop: 03/16/19 08:59 Last Admin: 01/15/19 16:30 Dose: Not Given Simethicone (Mylicon) 80 mg PO Q12H PRN PRN Reason: gas pain Stop: 03/15/19 15:50 Simvastatin (Zocor) 5 mg PO HS [facility] Stop: 03/16/19 20:59 Sodium Phosphate (Fleet Enema) 135 ml RC DAILY PRN PRN Reason: Constipation Stop: 03/15/19 15:50 Tramadol HCl (Ultram) 50 mg PO Q8H PRN PRN Reason: Pain (Severe) Stop: 03/15/19 15:50 Infectious Disease Objective - Results Result Diagrams: 01/16/19 05:30 01/16/19 05:30 Recent Labs: Laboratory Last Values WBC 7.4 Th/cmm (4.8-10.8) 01/16/19 05:30 RBC 3.65 Mil/cmm (3.80-5.20) L 01/16/19 05:30 Hgb 11.0 gm/dL (12-16) L 01/16/19 05:30 Hct 32.7 % (41.0-60) L 01/16/19 05:30 MCV 89.7 fl (81-100) 01/16/19 05:30 MCH 30.1 pg (27.0-31.0) 01/16/19 05:30 MCHC Differential 33.6 pg (28.0-36.0) 01/16/19 05:30 RDW 16.6 % (11.5-20.0) 01/16/19 05:30 Plt Count 179 Th/cmm (150-400) 01/16/19 05:30 MPV 7.7 fl 01/16/19 05:30 Neutrophils % 85.2 % (40.0-80.0) H 01/16/19 05:30 Lymphocytes % 10.6 % (20.0-50.0) L 01/16/19 05:30 Monocytes % 3.9 % (2.0-10.0) 01/16/19 05:30 Eosinophils % 0.2 % (0.0-5.0) 01/16/19 05:30 Basophils % 0.1 % (0.0-2.0) 01/16/19 05:30 PT 10.4 SECONDS (9.5-11.5) 01/15/19 04:56 INR 1.00 (0.5-1.4) 01/15/19 04:56 Sodium 135 mEq/L (136-145) L 01/16/19 05:30 Potassium 2.8 mEq/L (3.5-5.1) L* 01/16/19 05:30 Chloride 103 mEq/L (98-107) 01/16/19 05:30 Carbon Dioxide 22.3 mEq/L (21.0-31.0) 01/16/19 05:30 Anion Gap 12.5 (7.0-16.0) 01/16/19 05:30 BUN 19 mg/dL (7-25) 01/16/19 05:30 Creatinine 0.6 mg/dL (0.6-1.2) 01/16/19 05:30 Est GFR ( Amer) TNP 01/16/19 05:30 Est GFR (Non-Af Amer) P 01/16/19 05:30 BUN/Creatinine Ratio 31.7 01/16/19 05:30 Glucose 104 mg/dL (70-105) 01/16/19 05:30 POC Glucose 112 MG/DL (70 - 105) H 01/16/19 11:53 Calcium 8.3 mg/dL (8.6-10.3) L 01/16/19 05:30 Total Bilirubin 0.4 mg/dL (0.3-1.0) 01/13/19 17:40 AST 24 U/L (13-39) 01/13/19 17:40 ALT 33 U/L (7-52) 01/13/19 17:40 Alkaline Phosphatase 115 U/L (34-104) H 01/13/19 17:40 Troponin I 0.02 ng/mL (0.01-0.05) 01/13/19 17:40 Total Protein 5.3 gm/dL (6.0-8.3) L 01/13/19 17:40 Albumin 2.9 gm/dL (3.7-5.3) L 01/13/19 17:40 Globulin 2.4 gm/dL 01/13/19 17:40 Albumin/Globulin Ratio 1.2 (1.0-1.8) 01/13/19 17:40 Amylase 61 U/L (29-103) 01/13/19 17:40 Lipase 116 U/L (11-82) H 01/13/19 17:40 Urine Source CLEAN C 01/13/19 17:49 Urine Color YELLOW 01/13/19 17:49 Urine Clarity HAZY (CLEAR) 01/13/19 17:49 Urine pH 6.0 (4.6 - 8.0) 01/13/19 17:49 Ur Specific [place] 1.025 (1.005-1.030) 01/13/19 17:49 Urine Protein 30 mg/dL (NEGATIVE) H 01/13/19 17:49 Urine Glucose (UA) NEGATIVE mg/dL (NEGATIVE) 01/13/19 17:49 Urine Ketones NEGATIVE mg/dL (NEGATIVE) 01/13/19 17:49 Urine Blood LARGE (NEGATIVE) H 01/13/19 17:49 Urine Nitrate NEGATIVE (NEGATIVE) 01/13/19 17:49 Urine Bilirubin NEGATIVE (NEGATIVE) 01/13/19 17:49 Urine Urobilinogen 0.2 E.U./dL (0.2 - 1.0) 01/13/19 17:49 Ur Leukocyte Esterase MODERATE (NEGATIVE) H 01/13/19 17:49 Urine RBC 5-10 /hpf (0-5) H 01/13/19 17:49 Urine WBC 10-25 /hpf (0-5) H 01/13/19 17:49 Ur Epithelial Cells FEW /lpf (FEW) 01/13/19 17:49 Urine Bacteria 3+ /hpf (NONE SEEN) H 01/13/19 17:49 Helicobacter pylori Ab NEGATIVE (NEGATIVE) 01/15/19 10:15 Blood Type O POSITIVE 01/13/19 17:50 Antibody Screen NEGATIVE 01/13/19 17:50 Crossmatch See Detail 01/13/19 17:50 - Physical Exam Vitals and I&O: Vital Signs Temp 97.0 F 01/16/19 12:00 Pulse 61 01/16/19 12:00 Resp 18 01/16/19 12:00 BP 144/66 01/16/19 12:00 Pulse Ox 96 01/16/19 12:00 Intake & Output 01/15/19 01/16/19 01/16/19 18:59 06:59 18:59 Intake Total 300 170 100 Output Total 1100 750 Balance -800 -580 100 Weight (lbs) 92.079 kg 92.079 kg Intake: Intake, IV Amount 50 100 KCL 20mEq/100mL Premix 20 100 meq In 100 ml @ 50 mls/ hr IV Q2H [facility] Rx#: [id number] Levofloxacin 250mg/50mL 50 250 mg In 50 ml @ 50 mls/ hr IV Q24HR [facility] Rx#: [id number] Oral 300 120 Output: Urine 1100 750 Other: # Bowel Movements 0 1 Weight Source Bedscale Bedscale Active Medications: Current Medications Acetaminophen (Tylenol) 325 mg PO Q4H PRN PRN Reason: MILD PAIN AND TEMP ABOVE 101 Stop: 03/14/19 22:20 Last Admin: 01/15/19 16:30 Dose: 325 mg Acetaminophen (Tylenol Extra Strength) 500 mg PO Q6H PRN PRN Reason: Pain (Mild) Stop: 03/15/19 15:50 Amlodipine Besylate (Norvasc) 5 mg PO HS [facility] Stop: 03/15/19 20:59 Last Admin: 01/15/19 20:12 Dose: 5 mg Bisacodyl (Dulcolax 10 Mg Supp) 10 mg RC DAILY PRN PRN Reason: Constipation Stop: 03/15/19 15:50 Calcium Carbonate (Calcium Carb) 600 mg PO BID [facility] Stop: 03/16/19 08:59 Last Admin: 01/16/19 08:32 Dose: 600 mg Dexamethasone (Decadron) 2 mg PO Q12HR [facility] Stop: 03/16/19 08:59 Last Admin: 01/16/19 08:31 Dose: 2 mg Dextrose (D50w) 25 ml IVP Q24H PRN PRN Reason: blood sugar <70 Docusate Sodium (Colace) 100 mg PO BID [facility] Stop: 03/16/19 08:59 Last Admin: 01/16/19 08:31 Dose: 100 mg Gabapentin (Neurontin) 200 mg PO DAILY [facility] Stop: 03/16/19 08:59 Last Admin: 01/16/19 08:32 Dose: 200 mg Glucagon (Glucagen) 1 mg IM Q15MIN PRN PRN Reason: blood sugar<70 Heparin Sodium (Porcine) (Heparin) 5,000 units SUBQ Q8HR [facility] Stop: 03/16/19 04:59 Last Admin: 01/16/19 12:02 Dose: Not Given Levofloxacin (Levaquin Pb) 250 mg in 50 mls @ 50 mls/hr IV Q24HR [facility] Stop: 03/16/19 19:59 Last Infusion: 01/15/19 21:13 Dose: Infused Sodium Chloride (Nacl 0.45%) 1,000 mls @ 50 mls/hr IV .Q20H [facility] Stop: 03/17/19 07:29 Last Admin: 01/16/19 08:16 Dose: 50 mls/hr Insulin Human Lispro (Humalog) 0 unit SUBQ ACHS [facility]; Protocol Stop: 03/15/19 07:29 Last Admin: 01/16/19 11:57 Dose: Not Given Lactic Acid (Lac-Hydrin Cream) 1 appl TP BID [facility] Stop: 03/16/19 08:59 Last Admin: 01/16/19 08:32 Dose: 1 appl Losartan Potassium (Cozaar) 100 mg PO DAILY [facility] Stop: 03/16/19 08:59 Last Admin: 01/16/19 08:31 Dose: 100 mg Magnesium Hydroxide (Milk Of Magnesia) 30 ml PO DAILY PRN PRN Reason: Constipation Stop: 03/15/19 15:50 Miscellaneous (Chlorhexidine [Chlorhexidine Flavor]) 15 ml PO BID [facility] Stop: 03/15/19 16:59 Last Admin: 01/16/19 08:32 Dose: Not Given Pantoprazole Sodium (Protonix) 40 mg PO DAILY [facility] Stop: 03/16/19 08:59 Last Admin: 01/16/19 08:32 Dose: 40 mg Polyethylene Glycol (Miralax) 17 gm PO DAILY [facility] Stop: 03/16/19 10:44 Last Admin: 01/16/19 08:27 Dose: 17 gm Senna (Senna) 8.6 mg PO BID [facility] Stop: 03/16/19 08:59 Last Admin: 01/16/19 08:28 Dose: 8.6 mg Simethicone (Mylicon) 80 mg PO Q12H PRN PRN Reason: gas pain Stop: 03/15/19 15:50 Simvastatin (Zocor) 5 mg PO HS [facility] Stop: 03/16/19 20:59 Last Admin: 01/15/19 20:12 Dose: 5 mg Sodium Phosphate (Fleet Enema) 135 ml RC DAILY PRN PRN Reason: Constipation Stop: 03/15/19 15:50 Tramadol HCl (Ultram) 50 mg PO Q8H PRN PRN Reason: Pain (Severe) Stop: 03/15/19 15:50 Last Admin: 01/16/19 00:03 Dose: 50 mg - Procedures Procedures: Procedures Procedure Code Date EXCISION OF SIGMOID COLON, ENDO, DIAGN [id number] 01/13/19 EXCISION OF STOMACH, PYLORUS, ENDO, DIAGN [id number] 01/13/19
--- NOTE | 2019-01-16 17:43 | Progress Notes ---
DATE: 01/16/2019 SUBJECTIVE: The patient was seen in room. The patient appears to be awake and alert, poor historian due to medical condition but in no acute distress. The patient had an EGD and colonoscopy done yesterday. Otherwise, the patient is in no acute distress. OBJECTIVE: VITAL SIGNS: Temperature 97, heart rate 61, blood pressure 152/70, respiration 18, and 95% on 2 liters via nasal cannula. HEENT: Head is atraumatic and normocephalic. Eyes: Bilateral conjunctivae are clear. Bilateral pupils are equally round and reactive. NECK: Supple. No JVD. CARDIOVASCULAR: S1, S2, without murmur. PULMONARY: Decreased breath sounds. GASTROINTESTINAL: Soft and nontender without guarding. Positive bowel sounds. MUSCULOSKELETAL: No clubbing. No cyanosis. Positive muscle weakness. ASSESSMENT: 1. Gastrointestinal bleed. 2. Anemia. 3. Diverticulosis. 4. Hemorrhoids. 5. Dementia. 6. Hypertension. 7. Osteoarthritis. PLAN: We will continue to monitor the patient's electrolytes. Continue to monitor the patient's hemoglobin and hematocrit. Replace a potassium for today. Treatment plans were discussed with the patient's nurse. Treatment plans were discussed with Dr. Valentin. JOB# [id number]
[2019-01-16] MEDS: Levofloxacin 250mg/50mL 250 MG/50 ML BAG IV SCH (20:47)
[2019-01-17 04:57] LABS: % BASOPHILS 0.2 % (0.0-2.0); % EOSINOPHILS 0.2 % (0.0-5.0); % MONOCYTES 5.4 % (2.0-10.0); % NEUTROPHILS 80.2 % (40.0-80.0); HEMATOCRIT 32.6 % (41.0-60); HEMOGLOBIN 10.8 gm/dL (12-16); LYMPHOCYTE ABSOLUTE 0.8 Th/cmm (1.5-3.0); MEAN CELL VOLUME 89.3 fl (81-100); MEAN CORPUSCULAR HEMOGLOBIN 29.5 pg (27.0-31.0); MEAN CORPUSCULAR HGB CONC 33.1 pg (28.0-36.0); MONOCYTE ABSOLUTE 0.3 Th/cmm (0.3-1.0); NEUTROPHILE ABSOLUTE 4.6 Th/cmm (1.8-8.0); PLATELET COUNT 177 Th/cmm (150-400); RED BLOOD COUNT 3.65 Mil/cmm (3.80-5.20); RED CELL DISTRIBUTION WIDTH 16.2 % (11.5-20.0); WHITE BLOOD COUNT 5.7 Th/cmm (4.8-10.8)
[2019-01-17 05:11] LABS: ANION GAP 10.9 (7.0-16.0); BUN - UREA NITROGEN 20 mg/dL (7-25); CALCIUM SERUM 8.4 mg/dL (8.6-10.3); CARBON DIOXIDE 23.7 mEq/L (21.0-31.0); CHLORIDE 104 mEq/L (98-107); CREATININE - SERUM 0.5 mg/dL (0.6-1.2); GLUCOSE 132 mg/dL (70-105); POTASSIUM SERUM 3.6 mEq/L (3.5-5.1); SODIUM SERUM 135 mEq/L (136-145)
[2019-01-17] MEDS: Heparin Sod 5,000Units/ML 5,000 UNITS/ML VIAL SUBQ SCH ×2 (05:42→12:35)
[2019-01-17] MEDS: Sodium Chloride 0.45% 1,000 ML IV SCH (06:44)
[2019-01-17] MEDS: INSULIN LISPRO 100 UNIT/ML VIAL SUBQ SCH ×2 (06:45→11:29)
[2019-01-17] MEDS: POLYETHYLENE GLYCOL 3350 17 GM PACK PO SCH (08:12)
[2019-01-17] MEDS: Ammonium Lactate Cream 140 gm Tube TP SCH (08:12)
[2019-01-17] MEDS: Multivitamin w/ Minerals Tab PO SCH (08:13)
[2019-01-17] MEDS: Pantoprazole 40 mg EC Tab PO SCH (08:14)
--- NOTE | 2019-01-17 09:14 | GI Progress Note ---
Subjective - Review of Systems Service Date: 01/17/19 Subjective: Feels better. No abd pain or bleeding. Igor diet. GI OBJECTIVE - Results Result Diagrams: 01/17/19 04:40 01/17/19 04:40 Recent Labs: Laboratory Last Values WBC 5.7 Th/cmm (4.8-10.8) D 01/17/19 04:40 RBC 3.65 Mil/cmm (3.80-5.20) L 01/17/19 04:40 Hgb 10.8 gm/dL (12-16) L 01/17/19 04:40 Hct 32.6 % (41.0-60) L 01/17/19 04:40 MCV 89.3 fl (81-100) 01/17/19 04:40 MCH 29.5 pg (27.0-31.0) 01/17/19 04:40 MCHC Differential 33.1 pg (28.0-36.0) 01/17/19 04:40 RDW 16.2 % (11.5-20.0) 01/17/19 04:40 Plt Count 177 Th/cmm (150-400) 01/17/19 04:40 MPV 7.6 fl 01/17/19 04:40 Neutrophils % 80.2 % (40.0-80.0) H 01/17/19 04:40 Lymphocytes % 14.0 % (20.0-50.0) L 01/17/19 04:40 Monocytes % 5.4 % (2.0-10.0) 01/17/19 04:40 Eosinophils % 0.2 % (0.0-5.0) 01/17/19 04:40 Basophils % 0.2 % (0.0-2.0) 01/17/19 04:40 PT 10.4 SECONDS (9.5-11.5) 01/15/19 04:56 INR 1.00 (0.5-1.4) 01/15/19 04:56 Sodium 135 mEq/L (136-145) L 01/17/19 04:40 Potassium 3.6 mEq/L (3.5-5.1) 01/17/19 04:40 Chloride 104 mEq/L (98-107) 01/17/19 04:40 Carbon Dioxide 23.7 mEq/L (21.0-31.0) 01/17/19 04:40 Anion Gap 10.9 (7.0-16.0) 01/17/19 04:40 BUN 20 mg/dL (7-25) 01/17/19 04:40 Creatinine 0.5 mg/dL (0.6-1.2) L 01/17/19 04:40 Est GFR ( Amer) TNP 01/17/19 04:40 Est GFR (Non-Af Amer) TNP 01/17/19 04:40 BUN/Creatinine Ratio 40.0 01/17/19 04:40 Glucose 132 mg/dL (70-105) H 01/17/19 04:40 POC Glucose 114 MG/DL (70 - 105) H 01/17/19 06:40 Calcium 8.4 mg/dL (8.6-10.3) L 01/17/19 04:40 Total Bilirubin 0.4 mg/dL (0.3-1.0) 01/13/19 17:40 AST 24 U/L (13-39) 01/13/19 17:40 ALT 33 U/L (7-52) 01/13/19 17:40 Alkaline Phosphatase 115 U/L (34-104) H 01/13/19 17:40 Troponin I 0.02 ng/mL (0.01-0.05) 01/13/19 17:40 Total Protein 5.3 gm/dL (6.0-8.3) L 01/13/19 17:40 Albumin 2.9 gm/dL (3.7-5.3) L 01/13/19 17:40 Globulin 2.4 gm/dL 01/13/19 17:40 Albumin/Globulin Ratio 1.2 (1.0-1.8) 01/13/19 17:40 Amylase 61 U/L (29-103) 01/13/19 17:40 Lipase 116 U/L (11-82) H 01/13/19 17:40 Urine Source CLEAN C 01/13/19 17:49 Urine Color YELLOW 01/13/19 17:49 Urine Clarity HAZY (CLEAR) 01/13/19 17:49 Urine pH 6.0 (4.6 - 8.0) 01/13/19 17:49 Ur Specific [place] 1.025 (1.005-1.030) 01/13/19 17:49 Urine Protein 30 mg/dL (NEGATIVE) H 01/13/19 17:49 Urine Glucose (UA) NEGATIVE mg/dL (NEGATIVE) 01/13/19 17:49 Urine Ketones NEGATIVE mg/dL (NEGATIVE) 01/13/19 17:49 Urine Blood LARGE (NEGATIVE) H 01/13/19 17:49 Urine Nitrate NEGATIVE (NEGATIVE) 01/13/19 17:49 Urine Bilirubin NEGATIVE (NEGATIVE) 01/13/19 17:49 Urine Urobilinogen 0.2 E.U./dL (0.2 - 1.0) 01/13/19 17:49 Ur Leukocyte Esterase MODERATE (NEGATIVE) H 01/13/19 17:49 Urine RBC 5-10 /hpf (0-5) H 01/13/19 17:49 Urine WBC 10-25 /hpf (0-5) H 01/13/19 17:49 Ur Epithelial Cells FEW /lpf (FEW) 01/13/19 17:49 Urine Bacteria 3+ /hpf (NONE SEEN) H 01/13/19 17:49 Stool Occult Blood POSITIVE (NEGATIVE) H 01/17/19 07:37 Helicobacter pylori Ab NEGATIVE (NEGATIVE) 01/15/19 10:15 Blood Type O POSITIVE 01/13/19 17:50 Antibody Screen NEGATIVE 01/13/19 17:50 Crossmatch See Detail 01/13/19 17:50 - Physical Exam Vitals and I&O: Vital Signs Temp 96.9 F 01/17/19 08:00 Pulse 62 01/17/19 08:14 Resp 18 01/17/19 08:00 BP 135/64 01/17/19 08:14 Pulse Ox 97 01/17/19 08:00 Intake & Output 01/16/19 01/17/19 01/17/19 18:59 06:59 18:59 Intake Total 100 1000 500 Balance 100 1000 500 Weight (lbs) 92.079 kg Intake: Intake, IV Amount 100 1000 KCL 20mEq/100mL Premix 20 100 meq In 100 ml @ 50 mls/ hr IV Q2H [facility] Rx#: [id number] Sodium Chloride 0.45% 1, 1000 000 ml @ 50 mls/hr IV . Q20H [facility] Rx#:[id number] Oral 500 Other: # Voids 3 # Bowel Movements 2 Stool Characteristics Soft Soft Formed Formed Brown Weight Source Bedscale Active Medications: Current Medications Acetaminophen (Tylenol) 325 mg PO Q4H PRN PRN Reason: MILD PAIN AND TEMP ABOVE 101 Stop: 03/14/19 22:20 Last Admin: 01/15/19 16:30 Dose: 325 mg Acetaminophen (Tylenol Extra Strength) 500 mg PO Q6H PRN PRN Reason: Pain (Mild) Stop: 03/15/19 15:50 Amlodipine Besylate (Norvasc) 5 mg PO HS [facility] Stop: 03/15/19 20:59 Last Admin: 01/16/19 20:48 Dose: 5 mg Bisacodyl (Dulcolax 10 Mg Supp) 10 mg RC DAILY PRN PRN Reason: Constipation Stop: 03/15/19 15:50 Calcium Carbonate (Calcium Carb) 600 mg PO BID [facility] Stop: 03/16/19 08:59 Last Admin: 01/17/19 08:14 Dose: 600 mg Dexamethasone (Decadron) 2 mg PO Q12HR [facility] Stop: 03/16/19 08:59 Last Admin: 01/17/19 08:13 Dose: 2 mg Dextrose (D50w) 25 ml IVP Q24H PRN PRN Reason: blood sugar <70 Docusate Sodium (Colace) 100 mg PO BID [facility] Stop: 03/16/19 08:59 Last Admin: 01/17/19 08:14 Dose: 100 mg Gabapentin (Neurontin) 200 mg PO DAILY [facility] Stop: 03/16/19 08:59 Last Admin: 01/17/19 08:14 Dose: 200 mg Glucagon (Glucagen) 1 mg IM Q15MIN PRN PRN Reason: blood sugar<70 Heparin Sodium (Porcine) (Heparin) 5,000 units SUBQ Q8HR [facility] Stop: 03/16/19 04:59 Last Admin: 01/17/19 05:42 Dose: Not Given Levofloxacin (Levaquin Pb) 250 mg in 50 mls @ 50 mls/hr IV Q24HR [facility] Stop: 03/16/19 19:59 Last Admin: 01/16/19 20:47 Dose: 50 mls/hr Sodium Chloride (Nacl 0.45%) 1,000 mls @ 50 mls/hr IV .Q20H [facility] Stop: 03/17/19 07:29 Last Admin: 01/17/19 06:44 Dose: 50 mls/hr Insulin Human Lispro (Humalog) 0 unit SUBQ ACHS [facility]; Protocol Stop: 03/15/19 07:29 Last Admin: 01/17/19 06:45 Dose: Not Given Lactic Acid (Lac-Hydrin Cream) 1 appl TP BID [facility] Stop: 03/16/19 08:59 Last Admin: 01/17/19 08:12 Dose: 1 appl Losartan Potassium (Cozaar) 100 mg PO DAILY [facility] Stop: 03/16/19 08:59 Last Admin: 01/17/19 08:14 Dose: 100 mg Magnesium Hydroxide (Milk Of Magnesia) 30 ml PO DAILY PRN PRN Reason: Constipation Stop: 03/15/19 15:50 Miscellaneous (Chlorhexidine [Chlorhexidine Flavor]) 15 ml PO BID [facility] Stop: 03/15/19 16:59 Last Admin: 01/16/19 17:03 Dose: Not Given Pantoprazole Sodium (Protonix) 40 mg PO DAILY [facility] Stop: 03/16/19 08:59 Last Admin: 01/17/19 08:14 Dose: 40 mg Polyethylene Glycol (Miralax) 17 gm PO DAILY [facility] Stop: 03/16/19 10:44 Last Admin: 01/17/19 08:12 Dose: 17 gm Senna (Senna) 8.6 mg PO BID [facility] Stop: 03/16/19 08:59 Last Admin: 01/17/19 08:14 Dose: 8.6 mg Simethicone (Mylicon) 80 mg PO Q12H PRN PRN Reason: gas pain Stop: 03/15/19 15:50 Simvastatin (Zocor) 5 mg PO HS [facility] Stop: 03/16/19 20:59 Last Admin: 01/16/19 20:48 Dose: 5 mg Sodium Phosphate (Fleet Enema) 135 ml RC DAILY PRN PRN Reason: Constipation Stop: 03/15/19 15:50 Tramadol HCl (Ultram) 50 mg PO Q8H PRN PRN Reason: Pain (Severe) Stop: 03/15/19 15:50 Last Admin: 01/16/19 00:03 Dose: 50 mg General: Alert Lungs: Clear to auscultation Abdomen: Bowel sounds, Soft, no Tender - Procedures Procedures: Procedures Procedure Code Date EXCISION OF SIGMOID COLON, ENDO, DIAGN [id number] 01/13/19 EXCISION OF STOMACH, PYLORUS, ENDO, DIAGN [id number] 01/13/19 Assessment/Plan - Assessment Assessment: IMPRESSION: 1. GI bleed, likely due to rectal ulcer from fecal impaction. 2. Anemia. 3. EGD showed gastritis. 4. Colonoscopy showed fecal impaction with resultant rectal stercoral ulcer ( biopsied), sigmoid polyp removed; diverticulosis; hemorrhoids. RECS: 1. Laxatives/stool softeners. 2. F/U biopsy results. 3. Oral diet as tolerated.
[2019-01-17] MEDS: CHLORHEXIDINE PO SCH (09:48)
--- NOTE | 2019-01-17 10:25 | Internal Medicine Prog Note ---
Internal Medicine Subjective - Subjective Patient is:: awake, verbal, in bed Per staff patient has:: no adverse event, no episodes of fall Internal Medicine Objective - Results Result Diagrams: 01/17/19 04:40 01/17/19 04:40 Recent Labs: Laboratory Last Values WBC 5.7 Th/cmm (4.8-10.8) D 01/17/19 04:40 RBC 3.65 Mil/cmm (3.80-5.20) L 01/17/19 04:40 Hgb 10.8 gm/dL (12-16) L 01/17/19 04:40 Hct 32.6 % (41.0-60) L 01/17/19 04:40 MCV 89.3 fl (81-100) 01/17/19 04:40 MCH 29.5 pg (27.0-31.0) 01/17/19 04:40 MCHC Differential 33.1 pg (28.0-36.0) 01/17/19 04:40 RDW 16.2 % (11.5-20.0) 01/17/19 04:40 Plt Count 177 Th/cmm (150-400) 01/17/19 04:40 MPV 7.6 fl 01/17/19 04:40 Neutrophils % 80.2 % (40.0-80.0) H 01/17/19 04:40 Lymphocytes % 14.0 % (20.0-50.0) L 01/17/19 04:40 Monocytes % 5.4 % (2.0-10.0) 01/17/19 04:40 Eosinophils % 0.2 % (0.0-5.0) 01/17/19 04:40 Basophils % 0.2 % (0.0-2.0) 01/17/19 04:40 PT 10.4 SECONDS (9.5-11.5) 01/15/19 04:56 INR 1.00 (0.5-1.4) 01/15/19 04:56 Sodium 135 mEq/L (136-145) L 01/17/19 04:40 Potassium 3.6 mEq/L (3.5-5.1) 01/17/19 04:40 Chloride 104 mEq/L (98-107) 01/17/19 04:40 Carbon Dioxide 23.7 mEq/L (21.0-31.0) 01/17/19 04:40 Anion Gap 10.9 (7.0-16.0) 01/17/19 04:40 BUN 20 mg/dL (7-25) 01/17/19 04:40 Creatinine 0.5 mg/dL (0.6-1.2) L 01/17/19 04:40 Est GFR ( Amer) TNP 01/17/19 04:40 Est GFR (Non-Af Amer) TNP 01/17/19 04:40 BUN/Creatinine Ratio 40.0 01/17/19 04:40 Glucose 132 mg/dL (70-105) H 01/17/19 04:40 POC Glucose 114 MG/DL (70 - 105) H 01/17/19 06:40 Calcium 8.4 mg/dL (8.6-10.3) L 01/17/19 04:40 Total Bilirubin 0.4 mg/dL (0.3-1.0) 01/13/19 17:40 AST 24 U/L (13-39) 01/13/19 17:40 ALT 33 U/L (7-52) 01/13/19 17:40 Alkaline Phosphatase 115 U/L (34-104) H 01/13/19 17:40 Troponin I 0.02 ng/mL (0.01-0.05) 01/13/19 17:40 Total Protein 5.3 gm/dL (6.0-8.3) L 01/13/19 17:40 Albumin 2.9 gm/dL (3.7-5.3) L 01/13/19 17:40 Globulin 2.4 gm/dL 01/13/19 17:40 Albumin/Globulin Ratio 1.2 (1.0-1.8) 01/13/19 17:40 Amylase 61 U/L (29-103) 01/13/19 17:40 Lipase 116 U/L (11-82) H 01/13/19 17:40 Urine Source CLEAN C 01/13/19 17:49 Urine Color YELLOW 01/13/19 17:49 Urine Clarity HAZY (CLEAR) 01/13/19 17:49 Urine pH 6.0 (4.6 - 8.0) 01/13/19 17:49 Ur Specific [place] 1.025 (1.005-1.030) 01/13/19 17:49 Urine Protein 30 mg/dL (NEGATIVE) H 01/13/19 17:49 Urine Glucose (UA) NEGATIVE mg/dL (NEGATIVE) 01/13/19 17:49 Urine Ketones NEGATIVE mg/dL (NEGATIVE) 01/13/19 17:49 Urine Blood LARGE (NEGATIVE) H 01/13/19 17:49 Urine Nitrate NEGATIVE (NEGATIVE) 01/13/19 17:49 Urine Bilirubin NEGATIVE (NEGATIVE) 01/13/19 17:49 Urine Urobilinogen 0.2 E.U./dL (0.2 - 1.0) 01/13/19 17:49 Ur Leukocyte Esterase MODERATE (NEGATIVE) H 01/13/19 17:49 Urine RBC 5-10 /hpf (0-5) H 01/13/19 17:49 Urine WBC 10-25 /hpf (0-5) H 01/13/19 17:49 Ur Epithelial Cells FEW /lpf (FEW) 01/13/19 17:49 Urine Bacteria 3+ /hpf (NONE SEEN) H 01/13/19 17:49 Stool Occult Blood POSITIVE (NEGATIVE) H 01/17/19 07:37 Helicobacter pylori Ab NEGATIVE (NEGATIVE) 01/15/19 10:15 Blood Type O POSITIVE 01/13/19 17:50 Antibody Screen NEGATIVE 01/13/19 17:50 Crossmatch See Detail 01/13/19 17:50 - Physical Exam Vitals and I&O: Vital Signs Temp 96.9 F 01/17/19 08:00 Pulse 62 01/17/19 08:14 Resp 18 01/17/19 08:00 BP 135/64 01/17/19 08:14 Pulse Ox 97 01/17/19 08:00 Intake & Output 01/16/19 01/17/19 01/17/19 18:59 06:59 18:59 Intake Total 100 1000 500 Balance 100 1000 500 Weight (lbs) 203 lb Intake: Intake, IV Amount 100 1000 KCL 20mEq/100mL Premix 20 100 meq In 100 ml @ 50 mls/ hr IV Q2H [facility] Rx#: [id number] Sodium Chloride 0.45% 1, 1000 000 ml @ 50 mls/hr IV . Q20H [facility] Rx#:[id number] Oral 500 Other: # Voids 3 # Bowel Movements 2 Stool Characteristics Soft Soft Formed Formed Brown Weight Source Bedscale Active Medications: Current Medications Acetaminophen (Tylenol) 325 mg PO Q4H PRN PRN Reason: MILD PAIN AND TEMP ABOVE 101 Stop: 03/14/19 22:20 Last Admin: 01/15/19 16:30 Dose: 325 mg Acetaminophen (Tylenol Extra Strength) 500 mg PO Q6H PRN PRN Reason: Pain (Mild) Stop: 03/15/19 15:50 Amlodipine Besylate (Norvasc) 5 mg PO HS [facility] Stop: 03/15/19 20:59 Last Admin: 01/16/19 20:48 Dose: 5 mg Bisacodyl (Dulcolax 10 Mg Supp) 10 mg RC DAILY PRN PRN Reason: Constipation Stop: 03/15/19 15:50 Calcium Carbonate (Calcium Carb) 600 mg PO BID [facility] Stop: 03/16/19 08:59 Last Admin: 01/17/19 08:14 Dose: 600 mg Dexamethasone (Decadron) 2 mg PO Q12HR [facility] Stop: 03/16/19 08:59 Last Admin: 01/17/19 08:13 Dose: 2 mg Dextrose (D50w) 25 ml IVP Q24H PRN PRN Reason: blood sugar <70 Docusate Sodium (Colace) 100 mg PO BID [facility] Stop: 03/16/19 08:59 Last Admin: 01/17/19 08:14 Dose: 100 mg Gabapentin (Neurontin) 200 mg PO DAILY [facility] Stop: 03/16/19 08:59 Last Admin: 01/17/19 08:14 Dose: 200 mg Glucagon (Glucagen) 1 mg IM Q15MIN PRN PRN Reason: blood sugar<70 Heparin Sodium (Porcine) (Heparin) 5,000 units SUBQ Q8HR [facility] Stop: 03/16/19 04:59 Last Admin: 01/17/19 05:42 Dose: Not Given Levofloxacin (Levaquin Pb) 250 mg in 50 mls @ 50 mls/hr IV Q24HR [facility] Stop: 03/16/19 19:59 Last Admin: 01/16/19 20:47 Dose: 50 mls/hr Sodium Chloride (Nacl 0.45%) 1,000 mls @ 50 mls/hr IV .Q20H [facility] Stop: 03/17/19 07:29 Last Admin: 01/17/19 06:44 Dose: 50 mls/hr Insulin Human Lispro (Humalog) 0 unit SUBQ ACHS [facility]; Protocol Stop: 03/15/19 07:29 Last Admin: 01/17/19 06:45 Dose: Not Given Lactic Acid (Lac-Hydrin Cream) 1 appl TP BID [facility] Stop: 03/16/19 08:59 Last Admin: 01/17/19 08:12 Dose: 1 appl Losartan Potassium (Cozaar) 100 mg PO DAILY [facility] Stop: 03/16/19 08:59 Last Admin: 01/17/19 08:14 Dose: 100 mg Magnesium Hydroxide (Milk Of Magnesia) 30 ml PO DAILY PRN PRN Reason: Constipation Stop: 03/15/19 15:50 Miscellaneous (Chlorhexidine [Chlorhexidine Flavor]) 15 ml PO BID [facility] Stop: 03/15/19 16:59 Last Admin: 01/17/19 09:48 Dose: Not Given Pantoprazole Sodium (Protonix) 40 mg PO DAILY [facility] Stop: 03/16/19 08:59 Last Admin: 01/17/19 08:14 Dose: 40 mg Polyethylene Glycol (Miralax) 17 gm PO DAILY [facility] Stop: 03/16/19 10:44 Last Admin: 01/17/19 08:12 Dose: 17 gm Senna (Senna) 8.6 mg PO BID [facility] Stop: 03/16/19 08:59 Last Admin: 01/17/19 08:14 Dose: 8.6 mg Simethicone (Mylicon) 80 mg PO Q12H PRN PRN Reason: gas pain Stop: 03/15/19 15:50 Simvastatin (Zocor) 5 mg PO HS [facility] Stop: 03/16/19 20:59 Last Admin: 01/16/19 20:48 Dose: 5 mg Sodium Phosphate (Fleet Enema) 135 ml RC DAILY PRN PRN Reason: Constipation Stop: 03/15/19 15:50 Tramadol HCl (Ultram) 50 mg PO Q8H PRN PRN Reason: Pain (Severe) Stop: 03/15/19 15:50 Last Admin: 01/16/19 00:03 Dose: 50 mg General: alert, NAD HEENT: NC/AT, PERRLA Neck: Supple, No JVD Lungs: other (no acute respiratory distress) Cardiovascular: RRR Abdomen: soft, non-tender - Procedures Procedures: Procedures Procedure Code Date EXCISION OF SIGMOID COLON, ENDO, DIAGN [id number] 01/13/19 EXCISION OF STOMACH, PYLORUS, ENDO, DIAGN [id number] 01/13/19 Internal Medicine Assmt/Plan - Assessment Assessment: GIB Anemia Diverticulosis Hemorroids Dementia HTN OA UTI - Plan Plan: Continuation of care. Monitor Labs. Continue present meds as directed. Monitor vitals, Continue BP meds as directed. Monitor Diet/Nutritional support. Fall precaution, frequent nursing rounds, and as needed restraints to prevent fall. Supportive care. Continue collaborating with consulting specialists, case management and nursing team. F/U biopsy result Will Monitor patient and continue current treatment plan as ordered.
--- NOTE | 2019-01-17 15:13 | Infectious Disease Prog Note ---
Infectious Disease Subjective - Review of Systems Service Date: 01/17/19 Subjective: cc pseudomonas uti/gi bleed hpi- pseudomonas in urine r to zosyn rocephin changed to levaquin endoscopy done hb stable ros no fever o/e vss chest clear clear s1s2 abd soft ext no edema Vital Signs - 24 hr 01/14/19 01/14/19 01/14/19 18:54 20:00 21:39 Temp 98 F HR 68 73 73 RR 18 18 BP 146/80 146/80 O2 Sat % 96 100 01/15/19 01/15/19 01/15/19 00:00 04:00 08:00 Temp 96.7 F 97.3 F 96.5 F HR 78 81 63 RR 18 18 18 BP 113/65 136/69 137/64 O2 Sat % 96 98 100 01/15/19 01/15/19 01/15/19 09:48 10:46 12:00 Temp 96.9 F HR 66 63 58 RR 18 16 BP 137/64 155/67 O2 Sat % 97 96 01/15/19 16:00 Temp HR 67 RR BP 155/64 O2 Sat % Procedures EXCISION OF SIGMOID COLON, ENDO, DIAGN (01/13/19) EXCISION OF STOMACH, PYLORUS, ENDO, DIAGN (01/13/19) Microbiology 01/13/19 17:49 Urine,Clean Catch Urine Culture - Final Pseudomonas Aeruginosa 01/13/19 17:50 Nares - Final NO MRSA ISOLATED Laboratory Results - last 24 hr 01/14/19 01/15/19 01/15/19 21:38 04:56 06:52 PT 10.4 INR 1.00 POC Glucose 102 95 Diagnoses HYPOCALCEMIA (01/13/19) UNSPECIFIED DEMENTIA WITHOUT BEHAVIORAL DISTURBANCE (01/13/19) ESSENTIAL (PRIMARY) HYPERTENSION (01/13/19) MELENA (01/13/19) ACUTE KIDNEY FAILURE WITH TUBULAR NECROSIS (01/13/19) URINARY TRACT INFECTION, SITE NOT SPECIFIED (01/13/19) WEAKNESS (01/13/19) Current Medications Acetaminophen (Tylenol) 325 mg PO Q4H PRN PRN Reason: MILD PAIN AND TEMP ABOVE 101 Stop: 03/14/19 22:20 Last Admin: 01/15/19 16:30 Dose: 325 mg Acetaminophen (Tylenol Extra Strength) 500 mg PO Q6H PRN PRN Reason: Pain (Mild) Stop: 03/15/19 15:50 Amlodipine Besylate (Norvasc) 5 mg PO HS [facility] Stop: 03/15/19 20:59 Last Admin: 01/14/19 21:39 Dose: 5 mg Bisacodyl (Dulcolax 10 Mg Supp) 10 mg RC DAILY PRN PRN Reason: Constipation Stop: 03/15/19 15:50 Calcium Carbonate (Calcium Carb) 600 mg PO BID [facility] Stop: 03/16/19 08:59 Last Admin: 01/15/19 16:30 Dose: 600 mg Dexamethasone (Decadron) 2 mg PO Q12HR [facility] Stop: 03/16/19 08:59 Last Admin: 01/15/19 10:45 Dose: Not Given Dextrose (D50w) 25 ml IVP Q24H PRN PRN Reason: blood sugar <70 Docusate Sodium (Colace) 100 mg PO BID [facility] Stop: 03/16/19 08:59 Last Admin: 01/15/19 16:30 Dose: Not Given Gabapentin (Neurontin) 200 mg PO DAILY [facility] Stop: 03/16/19 08:59 Last Admin: 01/15/19 10:45 Dose: Not Given Glucagon (Glucagen) 1 mg IM Q15MIN PRN PRN Reason: blood sugar<70 Heparin Sodium (Porcine) (Heparin) 5,000 units SUBQ Q8HR [facility] Stop: 03/16/19 04:59 Last Admin: 01/15/19 14:29 Dose: Not Given Levofloxacin (Levaquin Pb) 250 mg in 50 mls @ 50 mls/hr IV Q24HR [facility] Stop: 03/16/19 18:14 Insulin Human Lispro (Humalog) [address] [facility]; Protocol Stop: 03/15/19 07:29 Last Admin: 01/15/19 17:32 Dose: Not Given Lactic Acid (Lac-Hydrin Cream) 1 appl TP BID [facility] Stop: 03/16/19 08:59 Last Admin: 01/15/19 17:32 Dose: 1 appl Losartan Potassium (Cozaar) 100 mg PO DAILY [facility] Stop: 03/16/19 08:59 Last Admin: 01/15/19 10:46 Dose: Not Given Magnesium Hydroxide (Milk Of Magnesia) 30 ml PO DAILY PRN PRN Reason: Constipation Stop: 03/15/19 15:50 Miscellaneous (Chlorhexidine [Chlorhexidine Flavor]) 15 ml PO BID [facility] Stop: 03/15/19 16:59 Last Admin: 01/15/19 16:30 Dose: Not Given Pantoprazole Sodium (Protonix) 40 mg PO DAILY [facility] Stop: 03/16/19 08:59 Last Admin: 01/15/19 10:53 Dose: Not Given Polyethylene Glycol (Miralax) 17 gm PO DAILY [facility] Stop: 03/16/19 10:44 Last Admin: 01/15/19 10:53 Dose: Not Given Senna (Senna) 8.6 mg PO BID [facility] Stop: 03/16/19 08:59 Last Admin: 01/15/19 16:30 Dose: Not Given Simethicone (Mylicon) 80 mg PO Q12H PRN PRN Reason: gas pain Stop: 03/15/19 15:50 Simvastatin (Zocor) 5 mg PO HS [facility] Stop: 03/16/19 20:59 Sodium Phosphate (Fleet Enema) 135 ml RC DAILY PRN PRN Reason: Constipation Stop: 03/15/19 15:50 Tramadol HCl (Ultram) 50 mg PO Q8H PRN PRN Reason: Pain (Severe) Stop: 03/15/19 15:50 Infectious Disease Objective - Results Result Diagrams: 01/17/19 04:40 01/17/19 04:40 Recent Labs: Laboratory Last Values WBC 5.7 Th/cmm (4.8-10.8) D 01/17/19 04:40 RBC 3.65 Mil/cmm (3.80-5.20) L 01/17/19 04:40 Hgb 10.8 gm/dL (12-16) L 01/17/19 04:40 Hct 32.6 % (41.0-60) L 01/17/19 04:40 MCV 89.3 fl (81-100) 01/17/19 04:40 MCH 29.5 pg (27.0-31.0) 01/17/19 04:40 MCHC Differential 33.1 pg (28.0-36.0) 01/17/19 04:40 RDW 16.2 % (11.5-20.0) 01/17/19 04:40 Plt Count 177 Th/cmm (150-400) 01/17/19 04:40 MPV 7.6 fl 01/17/19 04:40 Neutrophils % 80.2 % (40.0-80.0) H 01/17/19 04:40 Lymphocytes % 14.0 % (20.0-50.0) L 01/17/19 04:40 Monocytes % 5.4 % (2.0-10.0) 01/17/19 04:40 Eosinophils % 0.2 % (0.0-5.0) 01/17/19 04:40 Basophils % 0.2 % (0.0-2.0) 01/17/19 04:40 PT 10.4 SECONDS (9.5-11.5) 01/15/19 04:56 INR 1.00 (0.5-1.4) 01/15/19 04:56 Sodium 135 mEq/L (136-145) L 01/17/19 04:40 Potassium 3.6 mEq/L (3.5-5.1) 01/17/19 04:40 Chloride 104 mEq/L (98-107) 01/17/19 04:40 Carbon Dioxide 23.7 mEq/L (21.0-31.0) 01/17/19 04:40 Anion Gap 10.9 (7.0-16.0) 01/17/19 04:40 BUN 20 mg/dL (7-25) 01/17/19 04:40 Creatinine 0.5 mg/dL (0.6-1.2) L 01/17/19 04:40 Est GFR ( Amer) TNP 01/17/19 04:40 Est GFR (Non-Af Amer) TNP 01/17/19 04:40 BUN/Creatinine Ratio 40.0 01/17/19 04:40 Glucose 132 mg/dL (70-105) H 01/17/19 04:40 POC Glucose 106 MG/DL (70 - 105) H 01/17/19 11:25 Calcium 8.4 mg/dL (8.6-10.3) L 01/17/19 04:40 Total Bilirubin 0.4 mg/dL (0.3-1.0) 01/13/19 17:40 AST 24 U/L (13-39) 01/13/19 17:40 ALT 33 U/L (7-52) 01/13/19 17:40 Alkaline Phosphatase 115 U/L (34-104) H 01/13/19 17:40 Troponin I 0.02 ng/mL (0.01-0.05) 01/13/19 17:40 Total Protein 5.3 gm/dL (6.0-8.3) L 01/13/19 17:40 Albumin 2.9 gm/dL (3.7-5.3) L 01/13/19 17:40 Globulin 2.4 gm/dL 01/13/19 17:40 Albumin/Globulin Ratio 1.2 (1.0-1.8) 01/13/19 17:40 Amylase 61 U/L (29-103) 01/13/19 17:40 Lipase 116 U/L (11-82) H 01/13/19 17:40 Urine Source CLEAN C 01/13/19 17:49 Urine Color YELLOW 01/13/19 17:49 Urine Clarity HAZY (CLEAR) 01/13/19 17:49 Urine pH 6.0 (4.6 - 8.0) 01/13/19 17:49 Ur Specific [place] 1.025 (1.005-1.030) 01/13/19 17:49 Urine Protein 30 mg/dL (NEGATIVE) H 01/13/19 17:49 Urine Glucose (UA) NEGATIVE mg/dL (NEGATIVE) 01/13/19 17:49 Urine Ketones NEGATIVE mg/dL (NEGATIVE) 01/13/19 17:49 Urine Blood LARGE (NEGATIVE) H 01/13/19 17:49 Urine Nitrate NEGATIVE (NEGATIVE) 01/13/19 17:49 Urine Bilirubin NEGATIVE (NEGATIVE) 01/13/19 17:49 Urine Urobilinogen 0.2 E.U./dL (0.2 - 1.0) 01/13/19 17:49 Ur Leukocyte Esterase MODERATE (NEGATIVE) H 01/13/19 17:49 Urine RBC 5-10 /hpf (0-5) H 01/13/19 17:49 Urine WBC 10-25 /hpf (0-5) H 01/13/19 17:49 Ur Epithelial Cells FEW /lpf (FEW) 01/13/19 17:49 Urine Bacteria 3+ /hpf (NONE SEEN) H 01/13/19 17:49 Stool Occult Blood POSITIVE (NEGATIVE) H 01/17/19 07:37 Helicobacter pylori Ab NEGATIVE (NEGATIVE) 01/15/19 10:15 Blood Type O POSITIVE 01/13/19 17:50 Antibody Screen NEGATIVE 01/13/19 17:50 Crossmatch See Detail 01/13/19 17:50 - Physical Exam Vitals and I&O: Vital Signs Temp 96.9 F 01/17/19 14:35 Pulse 56 01/17/19 14:35 Resp 18 01/17/19 14:35 BP 100/65 01/17/19 14:35 Pulse Ox 96 01/17/19 14:35 Intake & Output 01/16/19 01/17/19 01/17/19 18:59 06:59 18:59 Intake Total 100 1000 500 Balance 100 1000 500 Weight (lbs) 92.079 kg Intake: Intake, IV Amount 100 1000 KCL 20mEq/100mL Premix 20 100 meq In 100 ml @ 50 mls/ hr IV Q2H [facility] Rx#: [id number] Sodium Chloride 0.45% 1, 1000 000 ml @ 50 mls/hr IV . Q20H [facility] Rx#:[id number] Oral 500 Other: # Voids 3 # Bowel Movements 2 Stool Characteristics Soft Soft Formed Formed Brown Weight Source Bedscale Active Medications: Current Medications Acetaminophen (Tylenol) 325 mg PO Q4H PRN PRN Reason: MILD PAIN AND TEMP ABOVE 101 Stop: 03/14/19 22:20 Last Admin: 01/15/19 16:30 Dose: 325 mg Acetaminophen (Tylenol Extra Strength) 500 mg PO Q6H PRN PRN Reason: Pain (Mild) Stop: 03/15/19 15:50 Amlodipine Besylate (Norvasc) 5 mg PO HS [facility] Stop: 03/15/19 20:59 Last Admin: 01/16/19 20:48 Dose: 5 mg Bisacodyl (Dulcolax 10 Mg Supp) 10 mg RC DAILY PRN PRN Reason: Constipation Stop: 03/15/19 15:50 Calcium Carbonate (Calcium Carb) 600 mg PO BID [facility] Stop: 03/16/19 08:59 Last Admin: 01/17/19 08:14 Dose: 600 mg Dexamethasone (Decadron) 2 mg PO Q12HR [facility] Stop: 03/16/19 08:59 Last Admin: 01/17/19 08:13 Dose: 2 mg Dextrose (D50w) 25 ml IVP Q24H PRN PRN Reason: blood sugar <70 Docusate Sodium (Colace) 100 mg PO BID [facility] Stop: 03/16/19 08:59 Last Admin: 01/17/19 08:14 Dose: 100 mg Gabapentin (Neurontin) 200 mg PO DAILY [facility] Stop: 03/16/19 08:59 Last Admin: 01/17/19 08:14 Dose: 200 mg Glucagon (Glucagen) 1 mg IM Q15MIN PRN PRN Reason: blood sugar<70 Heparin Sodium (Porcine) (Heparin) 5,000 units SUBQ Q8HR [facility] Stop: 03/16/19 04:59 Last Admin: 01/17/19 12:35 Dose: Not Given Levofloxacin (Levaquin Pb) 250 mg in 50 mls @ 50 mls/hr IV Q24HR [facility] Stop: 03/16/19 19:59 Last Admin: 01/16/19 20:47 Dose: 50 mls/hr Sodium Chloride (Nacl 0.45%) 1,000 mls @ 50 mls/hr IV .Q20H [facility] Stop: 03/17/19 07:29 Last Admin: 01/17/19 06:44 Dose: 50 mls/hr Insulin Human Lispro (Humalog) 0 unit SUBQ ACHS [facility]; Protocol Stop: 03/15/19 07:29 Last Admin: 01/17/19 11:29 Dose: Not Given Lactic Acid (Lac-Hydrin Cream) 1 appl TP BID [facility] Stop: 03/16/19 08:59 Last Admin: 01/17/19 08:12 Dose: 1 appl Losartan Potassium (Cozaar) 100 mg PO DAILY [facility] Stop: 03/16/19 08:59 Last Admin: 01/17/19 08:14 Dose: 100 mg Magnesium Hydroxide (Milk Of Magnesia) 30 ml PO DAILY PRN PRN Reason: Constipation Stop: 03/15/19 15:50 Miscellaneous (Chlorhexidine [Chlorhexidine Flavor]) 15 ml PO BID [facility] Stop: 03/15/19 16:59 Last Admin: 01/17/19 09:48 Dose: Not Given Pantoprazole Sodium (Protonix) 40 mg PO DAILY [facility] Stop: 03/16/19 08:59 Last Admin: 01/17/19 08:14 Dose: 40 mg Polyethylene Glycol (Miralax) 17 gm PO DAILY [facility] Stop: 03/16/19 10:44 Last Admin: 01/17/19 08:12 Dose: 17 gm Senna (Senna) 8.6 mg PO BID [facility] Stop: 03/16/19 08:59 Last Admin: 01/17/19 08:14 Dose: 8.6 mg Simethicone (Mylicon) 80 mg PO Q12H PRN PRN Reason: gas pain Stop: 03/15/19 15:50 Simvastatin (Zocor) 5 mg PO HS [facility] Stop: 03/16/19 20:59 Last Admin: 01/16/19 20:48 Dose: 5 mg Sodium Phosphate (Fleet Enema) 135 ml RC DAILY PRN PRN Reason: Constipation Stop: 03/15/19 15:50 Tramadol HCl (Ultram) 50 mg PO Q8H PRN PRN Reason: Pain (Severe) Stop: 03/15/19 15:50 Last Admin: 01/16/19 00:03 Dose: 50 mg - Procedures Procedures: Procedures Procedure Code Date EXCISION OF SIGMOID COLON, ENDO, DIAGN [id number] 01/13/19 EXCISION OF STOMACH, PYLORUS, ENDO, DIAGN [id number] 01/13/19
--- NOTE | 2019-01-20 12:51 | Pathology Report ---
[id number] Collection Date: 01/15/2019 Surgeon: Dr. Leena Solis Specimen Description: 1. Antrum biopsy. 2. Sigmoid polyp. 3. Rectal ulcer biopsy. Gross Description: Part I: Received in formalin is a single lamar soft tissue fragment measuring 0.2 cm in greatest dimension. Totally submitted in one cassette labeled A. Gross Description: Part II: Received in formalin is a single lamar soft tissue fragment measuring 0.2 cm in greatest dimension. Totally submitted in one cassette labeled B. Gross Description: Part III: Received in formalin are two lamar soft tissue fragments ranging from 0.1 to 0.2 cm in greatest dimension. Totally submitted in one cassette labeled C. Microscopic Description: Part I: The histologic sections show gastric mucosa with mild chronic inflammation present consisting of lymphocytes and plasma cells. The Giemsa stains show no evidence for Helicobacter pylori. Diagnosis: Part I: 1. Mild chronic gastritis, antrum biopsy. 2. The Giemsa stain is negative for Helicobacter pylori. Microscopic Description: Part II: The histologic sections show colon mucosa with adenomatous glandular changes present consisting of nuclear enlargement and stratification, with mostly tubules consisted with tubular adenoma. Diagnosis: Part II: Benign adenomatous polyp consistent with tubular adenoma, sigmoid polyp. Microscopic Description: Part III: The histologic sections show rectal mucosa with an area of superficial ulceration and acute inflammation consisting of large collections of neutrophils within the ulcerated area. Diagnosis: Part III: Ulcerated rectal mucosa showing acute inflammation, rectal ulcer biopsy. Comment: There is no evidence for malignancy. [facility]# [id number] [facility]
--- NOTE | 2019-01-25 09:46 | Discharge Summary ---
DATE OF DISCHARGE: 01/17/2019 HOSPITAL COURSE: The patient was admitted on 01/13/2019 to [facility] and discharged on 01/17/2019 going back to [facility]. The patient is a 78-year-old female admitted from the senior living with a diagnosis of coffee-ground emesis, melena, upper GI bleeding, UTI, history of hypertension and dementia. The patient was treated and had GI workup done. ID doctor saw the patient recently. The patient was in stable condition. FINAL DIAGNOSES: 1. Status post gastrointestinal bleeding. 2. Gastroesophageal reflux disease. 3. Gastritis. 4. History of dementia. 5. History of hypertension. PLAN: I will follow the patient. [facility]# [id number]
== END 2019-01-17 16:23 | DRG 377 ==
LOC: ER 17:16 → MSI 19:06 → TELE 01-14 04:21
PROVIDERS: ADMIT Internal Medicine; ATTEND Internal Medicine
PROC: 0DB78ZX Excision of Stomach, Pylorus, Via Natural or Artificial Opening Endoscopic, Diagnostic (ICD-10-PCS; principal; 2019-01-15)
PROC: 0DBN8ZX Excision of Sigmoid Colon, Via Natural or Artificial Opening Endoscopic, Diagnostic (ICD-10-PCS; 2019-01-15)
DX: K29.71 Gastritis, unspecified, with bleeding (principal); N17.0 Acute kidney failure with tubular necrosis; K85.90 Acute pancreatitis without necrosis or infection, unspecified; N39.0 Urinary tract infection, site not specified; E87.1 Hypo-osmolality and hyponatremia; K62.6 Ulcer of anus and rectum; K92.1 Melena; E83.51 Hypocalcemia; I10 Essential (primary) hypertension; F03.90 Unspecified dementia, unspecified severity, without behavioral disturbance, psychotic disturbance, mood disturbance, and anxiety; E78.5 Hyperlipidemia, unspecified; K21.9 Gastro-esophageal reflux disease without esophagitis; E86.0 Dehydration; R73.9 Hyperglycemia, unspecified; D50.9 Iron deficiency anemia, unspecified; K56.41 Fecal impaction; K57.31 Diverticulosis of large intestine without perforation or abscess with bleeding; K64.8 Other hemorrhoids; M19.90 Unspecified osteoarthritis, unspecified site; Z82.49 Family history of ischemic heart disease and other diseases of the circulatory system; Z87.11 Personal history of peptic ulcer disease
CPT/HCPCS: 36415-UA; 71045-TC; 80048-TC; 80053-TC; 81001-TC; 82150-TC; 82270-TC; 82948-90; 83690-TC; 84484-TC; 85025-TC; 85610-TC; 86850-TC; 86900-TC; 86901-TC; 86922-TC; 87086-90; 87338-TC; 93005; 94760; 96375; C9113; J0696; J1956; J2704; J3480; J7030; J8540; P9016; Z7610